=== PATIENT | male | born 1970 | race Two or more races ===

== ENCOUNTER 2025-04-25 14:16 | Inpatient (IN) | payer MEDICAID, OTHER ==
[~2025-04-25] VITALS: Ht 165.1 cm; Wt 83.8 kg
--- NOTE | 2025-04-25 14:45 | ECG ---
[facility] Test Date: 2025-04-25 Test Time: 14:41:12 Pat Name: SCOTT ISABEL Department: Room: 0245 Gender: M [employer] Hel[employer]: GP : 1970 Requested By: ADDY DENNY Order Number: [id number] Reading MD: Elio Doty Measurements Intervals Coleman Rate: 100 P: 44 MS: 176 QRS: 85 QRSD: 86 T: 5 QT: 359 QTc: 463 Interpretive Statements Sinus tachycardia Electronically Signed On 04-27-2025 10:58:11 PST by Elio Doty Please click the below link to view image of tracing.
[2025-04-25 15:10] LABS: Potassium 3.7 mmol/L (3.5-5.1); Sodium 136 mmol/L (136-145)
[2025-04-25 15:11] LABS: Anion Gap 3 (5-15); Calcium 9.2 mg/dL (8.7-10.4); Carbon Dioxide 24 mmol/L (20-31)
[2025-04-25 15:13] LABS: Hematocrit 43.1 % (41.0-53.0); Hemoglobin 14.6 g/dL (13.5-17.5); Mean Corpuscular Hemoglobin 30.0 pg (28.0-32.0); Mean Corpuscular Volume 88.5 fL (80.0-100.0); Nucleated Red Blood Cells % 0.1 %
[2025-04-25 15:16] LABS: BUN/Creatinine Ratio 8.3 (10.0-20.0); Blood Urea Nitrogen 10 mg/dL (9-23)
[2025-04-25 15:18] LABS: Chloride 109 mmol/L (98-107); Glucose 145 mg/dL (74-106)
[2025-04-25] MEDS ORDERED: MORPHINE SULFATE 4 MG/ML SYR/VIAL IV ONE (15:45)
[2025-04-25] MEDS: SODIUM CHLORIDE 0.9% 1,000 ML IV ONE (16:04)
[2025-04-25] MEDS: MORPHINE SULFATE INJ 2 MG/ml SYRG IM ONE (17:00)
[2025-04-25] MEDS: ONDANSETRON HCL 4 MG/2 ML VIAL IV ONE ×2 (17:00→17:52)
[2025-04-25] MEDS: MORPHINE SULFATE 4 MG/ML SYR/VIAL IV ONE (17:53)
[2025-04-25] MEDS: IOHEXOL 300 MG/ML 100ML BOTTLE IJ ONE (19:13)
--- NOTE | 2025-04-25 19:14 | ED.PDOC ---
History of Present Illness HPI Comments 54-year-old male presents with chief complaint of left flank pain. Patient reports on sudden, unprovoked, and atraumatic onset of symptoms, earlier, today. Pain is reported to radiate to his left abdomen. He endorses on having associated nausea and vomiting. Patient does not report any pertinent medical, surgical, or social history. He denies any having any diarrhea, constipation, fever, or further acute symptoms. Chief Complaint: Abdominal Pain Time Seen by MD: 15:30 Reviewed Notes: Nurses Notes, Medications, Allergies Allergies: Coded Allergies: NO KNOWN ALLERGIES (Unverified , 04/25/25) Information Source: Patient Mode of Arrival: Ambulatory Severity: Moderate Timing: Hours Duration: Since onset Prehospital treatment: None Past Medical History PAST MEDICAL HISTORY: Denies Surgical History: Denies all surgeries Family History Family History: Unknown Social History Smoker: Non-Smoker Alcohol: Denies ETOH Use Drugs: Denies Drug Use Lives In: Home All Other Systems: Reviewed and Negative (Comprehensive review of systems are negative unless otherwise stated in HPI) Physical Exam General Appearance: No Apparent Distress, Obese HEENT: Normal ENT Inspection, Pharynx Normal, TMs Normal Neck: Full Range of Motion, Non-Tender, Normal, Normal Inspection Respiratory: Chest Non-Tender, Lungs Clear, No Accessory Muscle Use, No Respiratory Distress, Normal Breath Sounds Cardiovascular: No Edema, No JVD, No Murmur, No Gallop, Normal Peripheral Pulses, Regular Rate/Rhythm Breast Exam: Deferred Gastrointestinal: No Organomegaly, Non Tender, No Pulsatile Mass, Normal Bowel Sounds, Soft Genitalia: Deferred Pelvic: Deferred Rectal: Deferred Extremities: No calf tenderness, Normal capillary refill, Normal inspection, Normal range of motion, Non-tender, No pedal edema Musculoskeletal : Location: Left Extremity Location: Other (Flank) Apperance: Normal, Tenderness (Left flank tenderness) Neurologic: Alert, automatic nailing machine feeder II-XII nml as Tested, No Motor Deficits, Normal Affect, Normal Mood, No Sensory Deficits Cerebellar Function: Normal Reflexes: Normal Skin: Dry, Normal Color, Warm Lymphatic: No Adenopathy Was a procedure done? Was a procedure done?: No Differential Dx Considerations may include: Nephrolithiasis, pyelonephritis, cystitis, musculoskeletal pain, sciatica, degenerative disc disease, diverticulitis, among others X-Ray, Labs, Meds, VS Vital Signs Date Time Temp Pulse Resp B/P (MAP) Pulse Ox O2 Delivery O2 Flow Rate FiO2 04/25/25 17:53 109 18 141/101 04/25/25 17:00 102 18 144/88 04/25/25 15:43 102 18 98 Room Air 04/25/25 15:43 97.9 102 18 144/88 (106) 98 97.9 04/25/25 14:41 100 04/25/25 14:33 98.2 100 18 163/99 98 98.2 Lab Test 04/25/25 14:54 Range/Units White Blood Count 12.7 H 4.4-10.8 10^3/uL Red Blood Count 4.87 4.5-5.90 10^6/uL Hemoglobin 14.6 13.5-17.5 g/dL Hematocrit 43.1 41.0-53.0 % Mean Corpuscular Volume 88.5 80.0-100.0 fL Mean Corpuscular Hemoglobin 30.0 28.0-32.0 pg Mean Corpuscular Hemoglobin Concent 33.9 32.0-36.0 g/dL Red Cell Distribution Width 12.9 11.8-14.3 % Platelet Count 300 140-450 10^3/uL Mean Platelet Volume 8.0 6.9-10.8 fL Neutrophils (%) (Auto) 85.5 H 37.0-80.0 % Lymphocytes (%) (Auto) 8.9 L 10.0-50.0 % Monocytes (%) (Auto) 5.4 0.0-12.0 % Eosinophils (%) (Auto) 0.0 0.0-7.0 % Basophils (%) (Auto) 0.2 0.0-2.0 % Neutrophils # (Auto) 10.9 H 1.6-8.6 10 ^3/uL Lymphocytes # (Auto) 1.1 0.4-5.4 10 ^3/uL Monocytes # (Auto) 0.7 0-1.3 10 ^3/uL Eosinophils # (Auto) 0 0-0.8 10 ^3/uL Basophils # (Auto) 0 0-0.2 10 ^3/uL Nucleated Red Blood Cells 0.1 % Sodium Level 136 136-145 mmol/L Potassium Level 3.7 3.5-5.1 mmol/L Chloride Level 109 H 98-107 mmol/L Carbon Dioxide Level 24 20-31 mmol/L Anion Gap 3 L 5-15 Blood Urea Nitrogen 10 9-23 mg/dL Creatinine 1.21 0.700-1.30 mg/dL Glomerular Filtration Rate Calc 71 >90 mL/min BUN/Creatinine Ratio 8.3 L 10.0-20.0 Serum Glucose 145 H 74-106 mg/dL Calcium Level 9.2 8.7-10.4 mg/dL Current Medications Medications (Trade) Dose Ordered Sig/Davin Route Start Time Stop Time Status Last Admin Ondansetron HCl (Zofran) 4 mg ONCE ONCE IV 04/25/25 15:45 04/25/25 15:46 DC 04/25/25 17:52 Sodium Chloride 1,000 ml @ 1,000 mls/hr Q1H ONCE IV 04/25/25 15:45 04/25/25 16:44 DC 04/25/25 16:04 Morphine Sulfate 4 mg ONCE ONCE IM 04/25/25 16:00 04/25/25 16:01 DC 04/25/25 17:00 Morphine Sulfate 4 mg ONCE ONCE IV 04/25/25 17:00 04/25/25 17:01 DC 04/25/25 17:53 Ondansetron HCl (Zofran) 4 mg ONCE ONCE IV 04/25/25 17:00 04/25/25 17:01 DC 04/25/25 17:00 Time of 1ST Reevaluation: 16:00 Reevaluation 1ST: Unchanged Patient Education/Counseling: Diagnosis, Treatment, Need For Follow Up Family Education/Counseling: No Family Present Additional Information Additional historians: None Previous medical visits reviewed: None Additional imaging and studies ordered and reviewed: EKG, CT of the abdomen and pelvis with IV contrast Labs ordered and reviewed: UA, CBC, BMP SEPSIS Sepsis Screen Date sepsis recognized/suspect: Apr 25, 2025 Time Sepsis recognized/suspect: 1436 Recent Procedure: No On Antibiotic Therapy: No Respiratory Rate >20: No Heart Rate >90: No Temp<36 C (96.8 F) or >38.3 C: No SBP <90 or MAP <65 mmHG: No New Acute Mental Status Change: No Is the patient on CPAP, BIPAP,: No Physician Orders Urinalysis (04/25/25 14:43) Ct Ab Pel With Iv Con Only (04/25/25 16:54) Ketorolac Injection (Toradol Injection) (04/25/25 19:45) Tamsulosin Hydrochloride (Flomax) (04/25/25 19:45) Vital Signs Date Time Temp Pulse Resp B/P (MAP) Pulse Ox O2 Delivery O2 Flow Rate FiO2 04/25/25 17:53 109 18 141/101 04/25/25 17:00 102 18 144/88 04/25/25 15:43 102 18 98 Room Air 04/25/25 15:43 97.9 102 18 144/88 (106) 98 97.9 04/25/25 14:41 100 04/25/25 14:33 98.2 100 18 163/99 98 98.2 Laboratory Tests Test 04/25/25 14:54 White Blood Count 12.7 10^3/uL (4.4-10.8) H Medications Medications Dose Ordered Sig/Davin Route Start Time Stop Time Status Last Admin Dose Admin Morphine Sulfate 4 mg ONCE ONCE IM 04/25/25 16:00 04/25/25 16:01 DC 04/25/25 17:00 Morphine Sulfate 4 mg ONCE ONCE IV 04/25/25 17:00 04/25/25 17:01 DC 04/25/25 17:53 Ondansetron HCl 4 mg ONCE ONCE IV 04/25/25 15:45 04/25/25 15:46 DC 04/25/25 17:52 Ondansetron HCl 4 mg ONCE ONCE IV 04/25/25 17:00 04/25/25 17:01 DC 04/25/25 17:00 Sodium Chloride 1,000 ml @ 1,000 mls/hr Q1H ONCE IV 04/25/25 15:45 04/25/25 16:44 DC 04/25/25 16:04 Departure 1 Departure Time of Disposition: 19:42 (Patient presented with abdominal pain that was concerning for possible appendicits, gastritis, cholecystitis, colitis, gastroenteritis, or orther possible surgical emergency. Data: 1. I ordered and reviewed the result of at least 3 labs including a CBC, BMP, and Urinalysis. 2. I independently interpreted the following tests: CT Abdoment and Pelvis is concerning for ureteral colic .Risk:This patient has a high risk of morbidity due to further diagnostic testing or treatment and may suffer from an acute abdominal process disorder. Fortunately workup reveals ureteral colic intractable abdominal pain and patient can be safely discharged to home with outpatient follow up.) Impression: Primary Impression: Ureteral colic Additional Impression: Intractable abdominal pain Disposition: ADMITTED INPATIENT Admit to: Med Surg Condition: Guarded Critical Care Note Critical Care Time?: Yes Critical care comment: Intractable abdominal pain Authorized and Performed by: Addy Kaminski MD Total critical care time: Approximately 39 minutes Due to a high probability of clinically significant, life threatening deterioration, the patient required my highest level of preparedness to intervene emergently and I personally spent this critical care time directly and personally managing the patient. This critical care time included obtaining a history; examining the patient; pulse oximetry; ordering and review of studies; arranging urgent treatment with development of a management plan; evaluation of patient's response to treatment; frequent reassessment; and, discussions with other providers. This critical care time was performed to assess and manage the high probability of imminent, life-threatening deterioration that could result in multi-organ failure. It was exclusive of separately billable procedures and treating other patients and teaching time. Please see my other sections and the rest of the note for further information on patient assessment and treatment. Stability Stability form required: No Heart Score Heart Score: Heart Score Response (Comments) Value History N/A 0 EKG N/A 0 Age N/A 0 Risk Factors N/A 0 Troponin N/A 0 Total 0 I personally scribed for ADDY KAMINSKI MD ([email or web address]) on 04/25/25 at 19:14. Electronically submitted by Javed Pascual ([email or web address]). ADDY KAMINSKI MD Apr 25, 2025 19:14
--- NOTE | 2025-04-25 19:34 | DVH ---
Exam: CT CT AB PEL WITH IV CON ONLY History: llq abdominal pain COMPARISON: None Technique: Multidetector spiral CT of the abdomen and pelvis was performed from lung bases to pubic symphysis. Intravenous contrast was administered during this examination. Portal venous imaging was obtained. Axial, coronal and sagittal multiplanar reformats were performed by the technologist on a separate workstation. Radiation Dose : 1. Abdomen/Pelvis: CTDIvol 15.63mGy, DLP 1029.88 mGy*cm. CONTRAST: Type of contrast: Omnipaque 300 Contrast injected: 98 ml Findings: Lung Bases: No acute or significant lung base finding. Normal heart size. No pleural or pericardial effusion. Liver: The liver is normal in size. No focal lesions. Normal hepatic vascular enhancement. Gallbladder and Biliary Tree: Unremarkable Spleen: Unremarkable Pancreas: The pancreas is normal in appearance without focal lesions or abnormal enhancement. Adrenal Glands: Unremarkable Kidneys: Obstructing distal left ureteric calculus measuring 3 mm resulting in mild hydronephrosis and hydroureter. Moderate perinephric edema. Bladder: Unremarkable Bowel: The stomach is grossly normal in appearance. Small bowel and colon are normal in caliber and distribution. The appendix is not visualized; however, no secondary findings of acute appendicitis identified. Ascites: Absent Lymphadenopathy: No mesenteric, retroperitoneal or periportal lymphadenopathy. Abdominal Wall and Mesentery: Unremarkable. Vasculature: The visualized abdominal aorta is normal in size and caliber. Abdominal and pelvic vessels demonstrate normal enhancement. Pelvic Organs: Unremarkable Musculoskeletal: No aggressive focal bony lesions, acute fractures or dislocation. IMPRESSION: Obstructing distal left ureteric calculus measuring 3 mm resulting in mild hydronephrosis. Radiation optimization: All CT scans at this facility use at least one of these dose optimization techniques: automated exposure control mA and/or kV adjustment per patient size (includes targeted exams where dose is matched to clinical indication) or iterative reconstruction.
[2025-04-25] MEDS: TAMSULOSIN HYDROCHLORIDE 0.4 MG CAP PO ONE (20:13)
[2025-04-25] MEDS: KETOROLAC TROMETH 30 MG/ML 1ML VIAL IV ONE (20:26)
--- NOTE | 2025-04-25 21:38 | DVHHP2 ---
History of Present Illness Reason for Visit: Intractable abdominal pain History of Present Illness The patient is a 54-year-old male who denies past medical history presented to [facility] with complaint of left flank pain. Patient reports that he has been experiencing left abdominal pain radiating to the left flank, rating 8/10 numeric scale, associated with nausea and vomiting, getting worse that prompted this visit. Patient was seen and evaluated in the ED, laboratory data shows elevated WBC 12.7, platelets 300, sodium 136, potassium 3.7, BUN 10, creatinine 1.21, GFR 71, glucose 145, calcium 9.2, blood pressure 139/92, heart rate 72, temperature 97.9 F, O2 saturation 97% on room air. Abdomen/pelvis CT revealing obstructing distal left ureteric calculus measuring 3 mm resulting in mild hydronephrosis. Please see medication orders section in the computer. On my assessment, patient denied chest pain, no headache, dizziness, diaphoresis, no diarrhea, constipation, nausea or vomiting at this moment, fever, no chills. Patient was admitted for further evaluation and medical management. Past Medical History Denies past medical history Past Surgical History Denies all surgeries Family History Reviewed, noncontributory to the management of this case. Past Social History The patient lives at home, denies smoking, alcohol or illicit drugs abuse. Review of Systems Constitutional: No: Fever, Chills, Sweats, Weakness, Malaise, Other Eyes: No: Pain, Vision change, Conjunctivae inflammation, Eyelid inflammation, Other, Redness ENT: No: Ear pain, Ear discharge, Nose pain, Nose discharge, Nose congestion, Mouth pain, Mouth swelling, Throat pain, Throat swelling, Other Respiratory: No: Cough, Dry, Shortness of breath, SOB with excertion, Wheezing, Hemoptysis, Pleuritic Pain, Sputum, Wheezing, Other Cardiovascular: No: Chest Pain, Palpitations, Orthopnea, Paroxysmal Noc. Dyspnea, Edema, Lt Headedness, Other Gastrointestinal: Nausea, Vomiting, Abdominal Pain; No: Diarrhea, Constipation, Melena, Hematochezia, Other Genitourinary: No Dysuria, No Frequency, No Incontinence, No Hematuria, No Retention; Other (Left flank pain) Musculoskeletal: No: other, neck pain, shoulder pain, arm pain, back pain, hand pain, leg pain, foot pain Skin: No: Rash, Lesions, Jaundice, Bruising, Other Neurological: No: Weakness, Numbness, Incoordination, Change in speech, Confusion, Seizures, Other Allergies: Coded Allergies: NO KNOWN ALLERGIES (Unverified , 04/25/25) Medications Current Medications Medications Dose Ordered Sig/Davin Route Start Time Stop Time Status Last Admin Dose Admin Sodium Chloride 1,000 ml @ 60 mls/hr [id number] IV 04/25/25 21:45 UNV Acetaminophen/ Hydrocodone Bitart 1 tab Q4HP PRN PO 04/25/25 21:45 UNV Ondansetron HCl 4 mg Q4HP PRN IV 04/25/25 21:45 UNV Docusate Sodium 100 mg BIDPRN PRN PO 04/25/25 21:45 UNV Acetaminophen 650 mg Q6HP PRN PO 04/25/25 21:45 UNV Morphine Sulfate 2 mg Q4HPRN PRN IV 04/25/25 21:45 UNV Nitroglycerin 0.4 mg Q5MINP PRN SL 04/25/25 21:45 UNV Morphine Sulfate 2 mg Q30M PRN IV 04/25/25 21:45 UNV Exam Vital Signs Vital Signs Date Time Temp Pulse Resp B/P (MAP) Pulse Ox O2 Delivery O2 Flow Rate FiO2 04/25/25 20:01 97.9 116 20 139/92 (108) 94 97.9 04/25/25 15:43 Room Air General Appearance: Alert, Oriented X3, Cooperative, No acute distress HEENT: Atraumatic, PERRLA, EOMI, Mucous membr. moist/pink Respiratory: Normal air movement Cardiovascular: Regular rate, Normal S1, Normal S2, No murmurs Abdominal: Normal bowel sounds, Soft, No hepatospenomegaly, No masses, Other (Reports tenderness) Extremities: No clubbing, No cyanosis, No edema, Normal pulses, No tenderne ss/swelling Skin: No rashes, No significant lesion Neuro: Normal speech, Normal tone, Sensation intact, Cranial nerves 3-12 NL, Reflexes 2+, Other (Generalized weakness) Psych/Mental Status: Mental status NL, Mood NL Labs/Xrays Labs Test 04/25/25 14:54 Range/Units White Blood Count 12.7 H 4.4-10.8 10^3/uL Red Blood Count 4.87 4.5-5.90 10^6/uL Hemoglobin 14.6 13.5-17.5 g/dL Hematocrit 43.1 41.0-53.0 % Mean Corpuscular Volume 88.5 80.0-100.0 fL Mean Corpuscular Hemoglobin 30.0 28.0-32.0 pg Mean Corpuscular Hemoglobin Concent 33.9 32.0-36.0 g/dL Red Cell Distribution Width 12.9 11.8-14.3 % Platelet Count 300 140-450 10^3/uL Mean Platelet Volume 8.0 6.9-10.8 fL Neutrophils (%) (Auto) 85.5 H 37.0-80.0 % Lymphocytes (%) (Auto) 8.9 L 10.0-50.0 % Monocytes (%) (Auto) 5.4 0.0-12.0 % Eosinophils (%) (Auto) 0.0 0.0-7.0 % Basophils (%) (Auto) 0.2 0.0-2.0 % Neutrophils # (Auto) 10.9 H 1.6-8.6 10 ^3/uL Lymphocytes # (Auto) 1.1 0.4-5.4 10 ^3/uL Monocytes # (Auto) 0.7 0-1.3 10 ^3/uL Eosinophils # (Auto) 0 0-0.8 10 ^3/uL Basophils # (Auto) 0 0-0.2 10 ^3/uL Nucleated Red Blood Cells 0.1 % Sodium Level 136 136-145 mmol/L Potassium Level 3.7 3.5-5.1 mmol/L Chloride Level 109 H 98-107 mmol/L Carbon Dioxide Level 24 20-31 mmol/L Anion Gap 3 L 5-15 Blood Urea Nitrogen 10 9-23 mg/dL Creatinine 1.21 0.700-1.30 mg/dL Glomerular Filtration Rate Calc 71 >90 mL/min BUN/Creatinine Ratio 8.3 L 10.0-20.0 Serum Glucose 145 H 74-106 mg/dL Calcium Level 9.2 8.7-10.4 mg/dL PATIENT: SCOTT ISABEL ACCT: [id number] UNIT: [id number] : 1970 LOC: ER ROOM / BED: / AGE / SEX: 54 / M ADM STATUS: REG ER SERVICE 1654 ORDERING PHYSICIAN: ADDY DENNY MD PROCEDURE(s): ABPLIV - CT AB PEL WITH IV CON ONLY REASON: llq abdominal pain ORDER NUMBER(s): [id number], ACCESSION NUMBER(s): [id number] Exam: CT CT AB PEL WITH IV CON ONLY History: llq abdominal pain COMPARISON: None Technique: Multidetector spiral CT of the abdomen and pelvis was performed from lung bases to pubic symphysis. Intravenous contrast was administered during this examination. Portal venous imaging was obtained. Axial, coronal and sagittal multiplanar reformats were performed by the technologist on a separate workstation. Radiation Dose: 1. Abdomen/Pelvis: CTDIvol 15.63mGy, DLP 1029.88 mGy*cm. CONTRAST: Type of contrast: Omnipaque 300 Contrast injected: 98 ml Findings: Lung Bases: No acute or significant lung base finding. Normal heart size. No pleural or pericardial effusion. Liver: The liver is normal in size. No focal lesions. Normal hepatic vascular enhancement. Gallbladder and Biliary Tree: Unremarkable Spleen: Unremarkable Pancreas: The pancreas is normal in appearance without focal lesions or abnormal enhancement. Adrenal Glands: Unremarkable Kidneys: Obstructing distal left ureteric calculus measuring 3 mm resulting in mild hydronephrosis and hydroureter. Moderate perinephric edema. Bladder: Unremarkable Bowel: The stomach is grossly normal in appearance. Small bowel and colon are normal in caliber and distribution. The appendix is not visualized; however, no secondary findings of acute appendicitis identified. Ascites: Absent Lymphadenopathy: No mesenteric, retroperitoneal or periportal lymphadenopathy. Abdominal Wall and Mesentery: Unremarkable. Vasculature: The visualized abdominal aorta is normal in size and caliber. Abdominal and pelvic vessels demonstrate normal enhancement. Pelvic Organs: Unremarkable Musculoskeletal: No aggressive focal bony lesions, acute fractures or dislocation. IMPRESSION: Obstructing distal left ureteric calculus measuring 3 mm resulting in mild hydronephrosis. SEPSIS Sepsis Screen Date sepsis recognized/suspect: Apr 25, 2025 Time Sepsis recognized/suspect: 2001 Recent Procedure: No On Antibiotic Therapy: No Respiratory Rate >20: No Heart Rate >90: Yes Temp<36 C (96.8 F) or >38.3 C: No SBP <90 or MAP <65 mmHG: No New Acute Mental Status Change: No Is the patient on CPAP, BIPAP,: No Physician Orders Urinalysis (04/25/25 14:43) Ct Ab Pel With Iv Con Only (04/25/25 16:54) * Urology Consult (04/25/25 19:43) Admit (04/25/25 21:34) Allergies (04/25/25 21:34) Code Status (04/25/25 21:34) Sodium Chloride 0.9% (04/25/25 21:45) Oxygen Per Hour (04/25/25 21:34) Hydrocodone-Acet 5/325mg Tab ([place] 5/32 (04/25/25 21:45) Ondansetron Hcl (Zofran) (04/25/25 21:45) Docusate Sodium Capsule (Colace Capsule) (04/25/25 21:45) Complete Blood Count (04/26/25 04:00) Comprehensive Metabolic Panel (04/26/25 04:00) Cardiac Diet-2gna,Lofat,Lochol (04/26/25 Breakfast) Condition: Serious (04/25/25 21:34) Acetaminophen Tablet (Tylenol Tablet) (04/25/25 21:45) Bedrest With Bathroom Privileg (04/25/25 21:34) Morphine Sulfate Injection (04/25/25 21:45) Sequential Compression Device (04/25/25 ) Nitroglycerin Sublingual (Ntrostat Subli (04/25/25 21:45) Morphine Sulfate Injection (04/25/25 21:45) Notify Md Of Changes From Base (04/25/25 21:34) Emergency Dysrhythmia Protocol (04/25/25 21:34) Oxygen By Nasal Cannula (04/25/25 21:34) Vital Signs Date Time Temp Pulse Resp B/P (MAP) Pulse Ox O2 Delivery O2 Flow Rate FiO2 04/25/25 20:01 97.9 116 20 139/92 (108) 94 97.9 04/25/25 18:23 71 15 140/79 04/25/25 17:53 109 18 141/101 04/25/25 17:00 102 18 144/88 04/25/25 15:43 102 18 98 Room Air 04/25/25 15:43 97.9 102 18 144/88 (106) 98 97.9 04/25/25 14:41 100 04/25/25 14:33 98.2 100 18 163/99 98 98.2 Laboratory Tests Test 04/25/25 14:54 White Blood Count 12.7 10^3/uL (4.4-10.8) H Medications Medications Dose Ordered Sig/Davin Route Start Time Stop Time Status Last Admin Dose Admin Ketorolac Tromethamine 15 mg ONCE ONCE IV 04/25/25 19:45 04/25/25 19:46 DC 04/25/25 20:26 15 MG Morphine Sulfate 4 mg ONCE ONCE IM 04/25/25 16:00 04/25/25 16:01 DC 04/25/25 17:00 4 MG Morphine Sulfate 4 mg ONCE ONCE IV 04/25/25 17:00 04/25/25 17:01 DC 04/25/25 17:53 4 MG Ondansetron HCl 4 mg ONCE ONCE IV 04/25/25 15:45 04/25/25 15:46 DC 04/25/25 17:52 4 MG Ondansetron HCl 4 mg ONCE ONCE IV 04/25/25 17:00 04/25/25 17:01 DC 04/25/25 17:00 4 MG Sodium Chloride 1,000 ml @ 1,000 mls/hr Q1H ONCE IV 04/25/25 15:45 04/25/25 16:44 DC 04/25/25 16:04 1,000 MLS/HR Tamsulosin HCl 0.4 mg ONCE ONCE PO 04/25/25 19:45 04/25/25 19:46 DC 04/25/25 20:13 0.4 MG Assessment/Plan Assessment/Plan Intractable abdominal pain Ureteral colic Hyperglycemia Leukocytosis, unspecified Plan 1. Admit to telemetry units 2. Breathing treatment 3. Pain control management 4. Management of fluids and electrolytes 5. Consultation for urology/hospitalist 6. Diagnostic tests abdomen/pelvis CT 7. DVT prophylaxis on SCDs 8. Repeat labs CBC, CMP in a.m. 9. Continue with current medical management 10. Treatment plan discussed with patient and RN. Patient verbalized understanding. Plan discussed with: Patient, Other (RN) My Orders Orders - GILMA MCCLAIN DNP Procedure Category Date Status Time Admit ADMIT 04/25/25 Transmitted 21:34 Allergies KARIN 04/25/25 In Process 21:34 Code Status CODE 04/25/25 Transmitted 21:34 Sodium Chloride 0.9% PHA 04/25/25 Logged 21:45 Oxygen Per Hour RT 04/25/25 Transmitted 21:34 Hydrocodone-Acet PHA 04/25/25 Logged 5/325mg Tab ([place] 21:45 Ondansetron Hcl PHA 04/25/25 Logged (Zofran) 21:45 Docusate Sodium PHA 04/25/25 Logged Capsule (Colace 21:45 Complete Blood Count LAB 04/26/25 Verified 04:00 Comprehensive LAB 04/26/25 Verified Metabolic Panel 04:00 Cardiac DIET 04/26/25 Transmitted Diet-2gna,Lofat,Lochol Breakfast Condition: Serious KARIN 04/25/25 In Process 21:34 Acetaminophen Tablet PHA 04/25/25 Logged (Tylenol Tablet) 21:45 Bedrest With Bathroom KARIN 04/25/25 In Process Privileg 21:34 Morphine Sulfate PHA 04/25/25 Logged Injection 21:45 Sequential KARIN 04/25/25 In Process Compression Device Nitroglycerin PHA 04/25/25 Logged Sublingual (Ntrostat 21:45 Morphine Sulfate PHA 04/25/25 Logged Injection 21:45 Notify Md Of Changes KARIN 04/25/25 In Process From Base 21:34 Emergency Dysrhythmia KARIN 04/25/25 In Process Protocol 21:34 Oxygen By Nasal RT 04/25/25 Transmitted Cannula 21:34 Problem List: (1) Intractable abdominal pain (2) Ureteral colic (3) Hyperglycemia (4) Leukocytosis, unspecified Date of Service: Apr 26, 2025 Billing Provider: GILMA MCCLAIN DNP Common Visit Codes: [id number] INP/OBS CARE (HIGH) GILMA MCCLAIN DNP Apr 25, 2025 21:38
[2025-04-25] MEDS ORDERED: HYDROcodone-ACET 5/325MG TAB PO PRN (21:45)
[2025-04-25] MEDS ORDERED: ONDANSETRON HCL 4 MG/2 ML VIAL IV PRN (21:45)
[2025-04-25] MEDS ORDERED: NITROGLYCERIN 0.4 MG SL TAB SL PRN (21:45)
[2025-04-25] MEDS ORDERED: MORPHINE SULFATE INJ 2 MG/ml SYRG IV PRN ×2 (21:45)
[2025-04-25] MEDS ORDERED: DOCUSATE SOD 100 MG CAP PO PRN (21:45)
[2025-04-25 22:24] LABS: Urine Protein, UAD Negative (Negative)
[2025-04-26] VITALS (7 sets, daily range): BP systolic 103–131; BP diastolic 67–80; PULSE 62–114; RESP 16–19; TEMP 97.9–98.9; O2SAT 94–98
[2025-04-26] MEDS: SODIUM CHLORIDE 0.9% 1,000 ML IV ONE (00:01)
[2025-04-26 02:28] LABS: Hematocrit 40.4 % (41.0-53.0); Hemoglobin 14.0 g/dL (13.5-17.5); Mean Corpuscular Hemoglobin 31.1 pg (28.0-32.0); Mean Corpuscular Volume 89.4 fL (80.0-100.0); Nucleated Red Blood Cells % 0.0 %
[2025-04-26 03:13] LABS: Alanine Aminotransferase 40 U/L (7-40); Albumin 3.9 g/dL (3.2-4.8); Alkaline Phosphatase 77 U/L (46-116); Anion Gap 12 (5-15); BUN/Creatinine Ratio 6.5 (10.0-20.0); Bilirubin, Total 0.8 mg/dL (0.2-1.0); Blood Urea Nitrogen 9 mg/dL (9-23); Carbon Dioxide 22 mmol/L (20-31); Chloride 104 mmol/L (98-107); Potassium 4.0 mmol/L (3.5-5.1); Sodium 138 mmol/L (136-145); Total Protein 6.8 g/dL (5.7-8.2)
[2025-04-26 03:22] LABS: Calcium 8.6 mg/dL (8.7-10.4); Glucose 175 mg/dL (74-106)
[2025-04-26] MEDS: SODIUM CHLORIDE 0.9% 1,000 ML IV SCH (06:13)
--- NOTE | 2025-04-26 10:28 | DVHINCON2 ---
Date of service: Apr 26, 2025 Referring Physician Hospitalist Reason for Consultation 3 mm left distal ureteral stone left flank pain History of Present Illness 54-year-old male presents with chief complaint of left flank pain. Patient reports on sudden, unprovoked, and atraumatic onset of symptoms, earlier, today. Pain is reported to radiate to his left abdomen. He endorses on having associated nausea and vomiting. Patient does not report any pertinent medical, surgical, or social history. He denies any having any diarrhea, constipation, fever, or further acute symptoms. Chief Complaint: Abdominal Pain Reviewed Notes: Nurses Notes, Medications, Allergies Allergies: Coded Allergies: NO KNOWN ALLERGIES (Unverified , 04/25/25) Information Source: Patient Mode of Arrival: Ambulatory Severity: Moderate Timing: Hours Duration: Since onset Prehospital treatment: None Past Medical History Denies Family History: Patient reports no known family medical history. Allergies: Coded Allergies: NO KNOWN ALLERGIES (Unverified , 04/25/25) Current Medications Current Medications Medications (Trade) Dose Ordered Sig/Davin Route PRN Reason Start Time Stop Time Status Last Admin Sodium Chloride 1,000 ml @ 60 mls/hr [id number] IV 04/25/25 21:45 04/26/25 06:13 Acetaminophen/ Hydrocodone Bitart ([place] 5/325MG Tab) 1 tab Q4HP PRN PO MODERATE PAIN (4-6 PAIN SCALE) 04/25/25 21:45 Ondansetron HCl (Zofran) 4 mg Q4HP PRN IV NAUSEA / VOMITING 04/25/25 21:45 Docusate Sodium (Colace Capsule) 100 mg BIDPRN PRN PO FOR CONSTIPATION 04/25/25 21:45 Acetaminophen (Tylenol Tablet) 650 mg Q6HP PRN PO PAIN SCALE 1-3 OR TEMP>100.4 04/25/25 21:45 Morphine Sulfate 2 mg Q4HPRN PRN IV SEVERE PAIN (7-10 PAIN SCALE) 04/25/25 21:45 Nitroglycerin (Ntrostat Sublingual) 0.4 mg Q5MINP PRN SL FOR CHEST PAIN 04/25/25 21:45 Morphine Sulfate 2 mg Q30M PRN IV FOR CHEST PAIN 04/25/25 21:45 Review of Systems All Other Systems: Reviewed and Negative (Comprehensive review of systems are negative unless otherwise stated in HPI) Vital Signs Vital Signs Date Time Temp Pulse Resp B/P (MAP) Pulse Ox O2 Delivery O2 Flow Rate FiO2 04/26/25 09:00 97.9 96 16 116/79 (91) 94 97.9 04/26/25 08:00 Room Air* 0 21 Physical Exam General Appearance: No Apparent Distress, Obese HEENT: Normal ENT Inspection, Pharynx Normal, TMs Normal Neck: Full Range of Motion, Non-Tender, Normal, Normal Inspection Respiratory: Chest Non-Tender, Lungs Clear, No Accessory Muscle Use, No Respiratory Distress, Normal Breath Sounds Cardiovascular: No Edema, No JVD, No Murmur, No Gallop, Normal Peripheral Pulses, Regular Rate/Rhythm Breast Exam: Deferred Gastrointestinal: No Organomegaly, Non Tender, No Pulsatile Mass, Normal Bowel Sounds, Soft Genitalia: Deferred Pelvic: Deferred Rectal: Deferred Extremities: No calf tenderness, Normal capillary refill, Normal inspection, Normal range of motion, Non-tender, No pedal edema Musculoskeletal : Location: Left Extremity Location: Other (Flank) Apperance: Normal, Tenderness (Left flank tenderness) Neurologic: Alert, access database developer II-XII nml as Tested, No Motor Deficits, Normal Affect, Normal Mood, No Sensory Deficits Cerebellar Function: Normal Reflexes: Normal Skin: Dry, Normal Color, Warm Lymphatic: No Adenopathy Labs/Diagnostic Data Labs Test 04/26/25 02:11 04/25/25 21:30 Range/Units White Blood Count 10.6 4.4-10.8 10^3/uL Red Blood Count 4.52 4.5-5.90 10^6/uL Hemoglobin 14.0 13.5-17.5 g/dL Hematocrit 40.4 L 41.0-53.0 % Mean Corpuscular Volume 89.4 80.0-100.0 fL Mean Corpuscular Hemoglobin 31.1 28.0-32.0 pg Mean Corpuscular Hemoglobin Concent 34.8 32.0-36.0 g/dL Red Cell Distribution Width 12.9 11.8-14.3 % Platelet Count 254 140-450 10^3/uL Mean Platelet Volume 8.0 6.9-10.8 fL Neutrophils (%) (Auto) 82.7 H 37.0-80.0 % Lymphocytes (%) (Auto) 10.3 10.0-50.0 % Monocytes (%) (Auto) 6.9 0.0-12.0 % Eosinophils (%) (Auto) 0.0 0.0-7.0 % Basophils (%) (Auto) 0.1 0.0-2.0 % Neutrophils # (Auto) 8.7 H 1.6-8.6 10 ^3/uL Lymphocytes # (Auto) 1.1 0.4-5.4 10 ^3/uL Monocytes # (Auto) 0.7 0-1.3 10 ^3/uL Eosinophils # (Auto) 0 0-0.8 10 ^3/uL Basophils # (Auto) 0 0-0.2 10 ^3/uL Nucleated Red Blood Cells 0.0 % Sodium Level 138 136-145 mmol/L Potassium Level 4.0 3.5-5.1 mmol/L Chloride Level 104 98-107 mmol/L Carbon Dioxide Level 22 20-31 mmol/L Anion Gap 12 5-15 Blood Urea Nitrogen 9 9-23 mg/dL Creatinine 1.39 H 0.700-1.30 mg/dL Glomerular Filtration Rate Calc 60 >90 mL/min BUN/Creatinine Ratio 6.5 L 10.0-20.0 Serum Glucose 175 H 74-106 mg/dL Hemoglobin A1c 6.1 H <5.7 % A1C Calcium Level 8.6 L 8.7-10.4 mg/dL Total Bilirubin 0.8 0.2-1.0 mg/dL Aspartate Amino Transferase (AST) 27 13-40 U/L Alanine Aminotransferase (ALT) 40 7-40 U/L Alkaline Phosphatase 77 46-116 U/L Total Protein 6.8 5.7-8.2 g/dL Albumin 3.9 3.2-4.8 g/dL Urine Color Light-yellow Yellow Urine Clarity Clear Clear Urine pH 5.5 5.0-9.0 Urine Specific [place] 1.040 H 1.001-1.035 Urine Protein Negative Negative Urine Ketones 1+ H Negative Urine Blood Negative Negative /uL Urine Nitrite Negative Negative Urine Bilirubin Negative Negative Urine Urobilinogen Normal Negative mg/dL Urine Leukocyte Esterase Negative Negative /uL Urine RBC 1 0 - 3 /hpf Urine Microscopic WBC 1 0-3 /HPF Urine Squamous Epithelial Cells None seen <5 /hpf Urine Bacteria None seen None Seen /hpf Urine Glucose Normal Normal mg/dL PATIENT: SCOTT ISABEL ACCT: [id number] UNIT: [id number] : 1970 LOC: ER ROOM / BED: / AGE / SEX: 54 / M ADM STATUS: REG ER SERVICE [id number] ORDERING PHYSICIAN: ADDY DENNY MD PROCEDURE(s): ABPLIV - CT AB PEL WITH IV CON ONLY REASON: llq abdominal pain ORDER NUMBER(s): [id number], ACCESSION NUMBER(s): [id number] Exam: CT CT AB PEL WITH IV CON ONLY History: llq abdominal pain COMPARISON: None Technique: Multidetector spiral CT of the abdomen and pelvis was performed from lung bases to pubic symphysis. Intravenous contrast was administered during this examination. Portal venous imaging was obtained. Axial, coronal and sagittal mu ltiplanar reformats were performed by the technologist on a separate workstation. Radiation Dose : 1. Abdomen/Pelvis: CTDIvol 15.63mGy, DLP 1029.88 mGy*cm. CONTRAST: Type of contrast: Omnipaque 300 Contrast injected: 98 ml Findings: Lung Bases: No acute or significant lung base finding. Normal heart size. No pleural or pericardial effusion. Liver: The liver is normal in size. No focal lesions. Normal hepatic vascular enhancement. Gallbladder and Biliary Tree: Unremarkable Spleen: Unremarkable Pancreas: The pancreas is normal in appearance without focal lesions or abnormal enhancement. Adrenal Glands: Unremarkable Kidneys: Obstructing distal left ureteric calculus measuring 3 mm resulting in mild hydronephrosis and hydroureter. Moderate perinephric edema. Bladder: Unremarkable Bowel: The stomach is grossly normal in appearance. Small bowel and colon are normal in caliber and distribution. The appendix is not visualized; however, no secondary findings of acute appendicitis identified. Ascites: Absent Lymphadenopathy: No mesenteric, retroperitoneal or periportal lymphadenopathy. Abdominal Wall and Mesentery: Unremarkable. Vasculature: The visualized abdominal aorta is normal in size and caliber. Abdominal and pelvic vessels demonstrate normal enhancement. Pelvic Organs: Unremarkable Musculoskeletal: No aggressive focal bony lesions, acute fractures or dis location. IMPRESSION: Obstructing distal left ureteric calculus measuring 3 mm resulting in mild hydronephrosis. Radiation optimization: All CT scans at this facility use at least one of these dose optimization techniques: automated exposure control mA and/or kV adjustment per patient size (includes targeted exams where dose is matched to clinical indication) or iterative reconstruction. ATED BY: ANDREA MA MD DICTATED DATE/TIME: 04/25/251931 SIGNED BY: ANDREA MA MD SIGNED DATE/TIME: 04/25/251931 CC: Assessment Left distal ureteral stone, 3 mm Mild left hydronephrosis Left flank pain Plan/Recommendation Expulsive measures If fail conservative management, will plan for left URSLL and stent placement for Sunday04/28/25 Will follow Plan discussed with: Patient, Other JENNY SANCHEZ MD Apr 26, 2025 10:28
--- NOTE | 2025-04-26 11:44 | DVH ---
Bladder ultrasound CLINICAL HISTORY: look for ureteral jetting TECHNIQUE: Multiple grayscale ultrasound images were obtained of the pelvis with attention to the urinary bladder. Limited color Doppler and spectral Doppler acquisitions were also obtained. COMPARISON: CT CT AB PEL WITH IV CON ONLY on DOS: 04/25/25 FINDINGS /impression: Prevoid urinary bladder volume is 112 mL. Wall thickness is 1.4 mm. The right ureteral jet is visualized. The left ureteral jet is not visualized. Prostate is normal in size.
[2025-04-26] MEDS: MANNITOL FTV 25% 12.5 GM/50 ML 50 ML IV ONE (11:52)
--- NOTE | 2025-04-26 13:27 | DVHPN2 ---
Reviewed: Care Plan, H&P, Labs, Medications, Previous Orders, Radiology Changes from previous H/P or p: No Changes Eyes: No Pain, No Vision change, No Conjunctivae inflammation, No Eyelid inflammation, No Other, No Redness ENT: No Ear pain, No Ear discharge, No Nose pain, No Nose discharge, No Nose congestion, No Mouth pain, No Mouth swelling, No Throat pain, No Throat swelling, No Other Cardiovascular: No Chest Pain, No Palpitations, No Orthopnea, No Paroxysmal Noc. Dyspnea, No Edema, No Lt Headedness, No Other Respiratory: No Cough, No Dry, No Shortness of breath, No SOB with excertion, No Wheezing, No Hemoptysis, No Pleuritic Pain, No Sputum, No Other Gastrointestinal: Nausea, Vomiting, Abdominal Pain; No Diarrhea, No Constipation, No Melena, No Hematochezia, No Other Genitourinary: No Dysuria, No Frequency, No Incontinence, No Hematuria, No Retention; Other (Left flank pain) Musculoskeletal: No other, No neck pain, No shoulder pain, No arm pain, No back pain, No hand pain, No leg pain, No foot pain Skin: No Rash, No Lesions, No Jaundice, No Bruising, No Other Objective Vitals Vital Signs Date Time Temp Pulse Resp B/P (MAP) Pulse Ox O2 Delivery O2 Flow Rate FiO2 04/26/25 09:00 97.9 96 16 116/79 (91) 94 97.9 04/26/25 08:00 Room Air* 0 21 Intake/Output Intake and Output 04/26/25 07:00 Intake Total 1200 ml Balance 1200 ml Intake Oral 200 ml IV Total 1000 ml # Voids 1 Medications Current Medications Medications Dose Ordered Sig/Davin Route Start Time Stop Time Status Last Admin Dose Admin Sodium Chloride 1,000 ml @ 60 mls/hr [id number] IV 04/25/25 21:45 04/26/25 06:13 60 MLS/HR Acetaminophen/ Hydrocodone Bitart 1 tab Q4HP PRN PO 04/25/25 21:45 Ondansetron HCl 4 mg Q4HP PRN IV 04/25/25 21:45 Docusate Sodium 100 mg BIDPRN PRN PO 04/25/25 21:45 Acetaminophen 650 mg Q6HP PRN PO 04/25/25 21:45 Morphine Sulfate 2 mg Q4HPRN PRN IV 04/25/25 21:45 Nitroglycerin 0.4 mg Q5MINP PRN SL 04/25/25 21:45 Morphine Sulfate 2 mg Q30M PRN IV 04/25/25 21:45 Laboratory Results Laboratory Tests 04/26/25 02:11 Chemistry Test 04/25/25 14:54 04/26/25 02:11 Calcium Level 9.2 mg/dL (8.7-10.4) 8.6 mg/dL (8.7-10.4) L Albumin 3.9 g/dL (3.2-4.8) Total Protein 6.8 g/dL (5.7-8.2) LFT Test 04/26/25 02:11 Alanine Aminotransferase (ALT) 40 U/L (7-40) Alkaline Phosphatase 77 U/L (46-116) Aspartate Amino Transferase (AST) 27 U/L (13-40) Total Bilirubin 0.8 mg/dL (0.2-1.0) HgA1c, TSH Test 04/26/25 02:11 Hemoglobin A1c 6.1 % A1C (<5.7) H Urinalysis Test 04/25/25 21:30 Urine Color Light-yellow (Yellow) Urine Clarity Clear (Clear) Urine pH 5.5 (5.0-9.0) Urine Specific [place] 1.040 (1.001-1.035) Urine Protein Negative (Negative) Urine Ketones 1+ (Negative) H Urine Blood Negative /uL (Negative) Urine Nitrite Negative (Negative) Urine Bilirubin Negative (Negative) Urine Urobilinogen Normal mg/dL (Negative) Urine Leukocyte Esterase Negative /uL (Negative) Urine RBC 1 /hpf (0 - 3) Urine Microscopic WBC 1 /HPF (0-3) Urine Squamous Epithelial Cells None seen /hpf (<5) Urine Bacteria None seen /hpf (None Seen) Urine Glucose Normal mg/dL (Normal) Labs and/or images reviewed: Labs reviewed by me, Image(s) reviewed by me Assessment/Plan Assessment/Plan Intractable acute left flank pain 3 mm left distal ureteral stone with mild hydronephrosis: Urology consult by Dr. Cooper appreciated, conservative measures pain medication Flomax Acute dehydration: IV fluids Ureteral colic Hyperglycemia Mild leukocytosis Plan discussed with: Patient My Orders Orders - ROCHELLE RANKIN MD Procedure Category Date Status Time Tamsulosin PHA 04/26/25 Verified Hydrochloride (Flomax) 18:00 Tamsulosin PHA 04/26/25 Verified Hydrochloride (Flomax) 13:30 Date of Service: Apr 26, 2025 Billing Provider: ROCHELLE RANKIN MD Common Visit Codes: [id number] INP/OBS CARE(HIGH) ROCHELLE RANKIN MD Apr 26, 2025 13:27
[2025-04-26] MEDS: ACETAMINOPHEN 325 MG TAB PO PRN (13:39)
[2025-04-26] MEDS: TAMSULOSIN HYDROCHLORIDE 0.4 MG CAP PO ONE (13:40)
[2025-04-27 00:52] VITALS: BP 110/68; PULSE 91; RESP 18; TEMP 98.2; O2SAT 96
[2025-04-27] MEDS ORDERED: MORPHINE SULFATE 4 MG/ML SYR/VIAL IV PRN (03:15)
[2025-04-27] MEDS: MORPHINE SULFATE 4 MG/ML SYR/VIAL IV PRN (03:21)
[2025-04-27 04:49] VITALS: BP 137/87; PULSE 96; RESP 18; TEMP 97.8; O2SAT 94
[2025-04-27 08:00] VITALS: PULSE 96; RESP 18; O2SAT 100
[2025-04-27 09:00] VITALS: BP_SYST 107; BP_SYST 150; BP_DIAS 59; BP_DIAS 77; PULSE 63; PULSE 96; RESP 18; RESP 20; TEMP 97.6; O2SAT 100
--- NOTE | 2025-04-27 12:08 | DVHPN2 ---
Reviewed: Care Plan, H&P, Labs, Medications, Previous Orders, Radiology Changes from previous H/P or p: No Changes Eyes: No Pain, No Vision change, No Conjunctivae inflammation, No Eyelid inflammation, No Other, No Redness ENT: No Ear pain, No Ear discharge, No Nose pain, No Nose discharge, No Nose congestion, No Mouth pain, No Mouth swelling, No Throat pain, No Throat swelling, No Other Cardiovascular: No Chest Pain, No Palpitations, No Orthopnea, No Paroxysmal Noc. Dyspnea, No Edema, No Lt Headedness, No Other Respiratory: No Cough, No Dry, No Shortness of breath, No SOB with excertion, No Wheezing, No Hemoptysis, No Pleuritic Pain, No Sputum, No Other Gastrointestinal: Nausea, Vomiting, Abdominal Pain; No Diarrhea, No Constipation, No Melena, No Hematochezia, No Other Genitourinary: No Dysuria, No Frequency, No Incontinence, No Hematuria, No Retention; Other (Left flank pain) Musculoskeletal: No other, No neck pain, No shoulder pain, No arm pain, No back pain, No hand pain, No leg pain, No foot pain Skin: No Rash, No Lesions, No Jaundice, No Bruising, No Other Objective Vitals Vital Signs Date Time Temp Pulse Resp B/P (MAP) Pulse Ox O2 Delivery O2 Flow Rate FiO2 04/27/25 09:00 97.6 96 18 150/77 (101) 100 97.6 04/27/25 08:00 Room Air* 0 21 Intake/Output Intake and Output 04/27/25 07:00 Intake Total 1560 ml Balance 1560 ml Intake Oral 1510 ml IV Total 50 ml # Voids 7 Medications Current Medications Medications Dose Ordered Sig/Davin Route Start Time Stop Time Status Last Admin Dose Admin Sodium Chloride 1,000 ml @ 60 mls/hr [id number] IV 04/25/25 21:45 04/26/25 06:13 60 MLS/HR Acetaminophen/ Hydrocodone Bitart 1 tab Q4HP PRN PO 04/25/25 21:45 Ondansetron HCl 4 mg Q4HP PRN IV 04/25/25 21:45 Docusate Sodium 100 mg BIDPRN PRN PO 04/25/25 21:45 Acetaminophen 650 mg Q6HP PRN PO 04/25/25 21:45 04/26/25 13:39 650 MG Nitroglycerin 0.4 mg Q5MINP PRN SL 04/25/25 21:45 Tamsulosin HCl 0.4 mg QPM PO 04/27/25 18:00 Morphine Sulfate 2 mg Q4HPRN PRN IV 04/27/25 03:15 04/27/25 03:21 2 MG Morphine Sulfate 2 mg Q30M PRN IV 04/27/25 03:15 Laboratory Results Laboratory Tests 04/26/25 02:11 Urinalysis Test 04/25/25 21:30 Urine Color Light-yellow (Yellow) Urine Clarity Clear (Clear) Urine pH 5.5 (5.0-9.0) Urine Specific [place] 1.040 (1.001-1.035) Urine Protein Negative (Negative) Urine Ketones 1+ (Negative) H Urine Blood Negative /uL (Negative) Urine Nitrite Negative (Negative) Urine Bilirubin Negative (Negative) Urine Urobilinogen Normal mg/dL (Negative) Urine Leukocyte Esterase Negative /uL (Negative) Urine RBC 1 /hpf (0 - 3) Urine Microscopic WBC 1 /HPF (0-3) Urine Squamous Epithelial Cells None seen /hpf (<5) Urine Bacteria None seen /hpf (None Seen) Urine Glucose Normal mg/dL (Normal) Labs and/or images reviewed: Labs reviewed by me, Image(s) reviewed by me Assessment/Plan Assessment/Plan Intractable acute left flank pain 3 mm left distal ureteral stone with mild hydronephrosis: Urology consult by Dr. Kenneth jensen, conservative measures pain medication Flomax Acute dehydration: IV fluids Ureteral colic Hyperglycemia Mild leukocytosis Patient has no pain and wants to be discharged home Plan discussed with: Patient My Orders Orders - ROCHELLE RANKIN MD Procedure Category Date Status Time Tamsulosin PHA 04/27/25 In Process Hydrochloride (Flomax) 18:00 Date of Service: Apr 27, 2025 Billing Provider: ROCHELLE RANKIN MD Common Visit Codes: [id number] INP/OBS CARE(HIGH) ROCHELLE RANKIN MD Apr 27, 2025 12:08
[2025-04-27] MEDS ORDERED: TAMS-35 PO (12:09)
[2025-04-27] MEDS ORDERED: TRAM-626 PO (12:10)
--- NOTE | 2025-04-27 12:16 | DVHDS2 ---
Discharge Summary Date of Admission Apr 25, 2025 at 21:34 Date of Discharge: Apr 27, 2025 Admitting Diagnosis Left flank pain Wounds: None Labs/Diagnostic Data: Laboratory Results Test 04/26/25 02:11 04/25/25 21:30 White Blood Count 10.6 10^3/uL (4.4-10.8) Red Blood Count 4.52 10^6/uL (4.5-5.90) Hemoglobin 14.0 g/dL (13.5-17.5) Hematocrit 40.4 % (41.0-53.0) Mean Corpuscular Volume 89.4 fL (80.0-100.0) Mean Corpuscular Hemoglobin 31.1 pg (28.0-32.0) Mean Corpuscular Hemoglobin Concent 34.8 g/dL (32.0-36.0) Red Cell Distribution Width 12.9 % (11.8-14.3) Platelet Count 254 10^3/uL (140-450) Mean Platelet Volume 8.0 fL (6.9-10.8) Neutrophils (%) (Auto) 82.7 % (37.0-80.0) Lymphocytes (%) (Auto) 10.3 % (10.0-50.0) Monocytes (%) (Auto) 6.9 % (0.0-12.0) Eosinophils (%) (Auto) 0.0 % (0.0-7.0) Basophils (%) (Auto) 0.1 % (0.0-2.0) Neutrophils # (Auto) 8.7 10 ^3/uL (1.6-8.6) Lymphocytes # (Auto) 1.1 10 ^3/uL (0.4-5.4) Monocytes # (Auto) 0.7 10 ^3/uL (0-1.3) Eosinophils # (Auto) 0 10 ^3/uL (0-0.8) Basophils # (Auto) 0 10 ^3/uL (0-0.2) Nucleated Red Blood Cells 0.0 % Sodium Level 138 mmol/L (136-145) Potassium Level 4.0 mmol/L (3.5-5.1) Chloride Level 104 mmol/L (98-107) Carbon Dioxide Level 22 mmol/L (20-31) Anion Gap 12 (5-15) Blood Urea Nitrogen 9 mg/dL (9-23) Creatinine 1.39 mg/dL (0.700-1.30) Glomerular Filtration Rate Calc 60 mL/min (>90) BUN/Creatinine Ratio 6.5 (10.0-20.0) Serum Glucose 175 mg/dL (74-106) Hemoglobin A1c 6.1 % A1C (<5.7) Calcium Level 8.6 mg/dL (8.7-10.4) Total Bilirubin 0.8 mg/dL (0.2-1.0) Aspartate Amino Transferase (AST) 27 U/L (13-40) Alanine Aminotransferase (ALT) 40 U/L (7-40) Alkaline Phosphatase 77 U/L (46-116) Total Protein 6.8 g/dL (5.7-8.2) Albumin 3.9 g/dL (3.2-4.8) Urine Color Light-yellow (Yellow) Urine Clarity Clear (Clear) Urine pH 5.5 (5.0-9.0) Urine Specific [place] 1.040 (1.001-1.035) Urine Protein Negative (Negative) Urine Ketones 1+ (Negative) Urine Blood Negative /uL (Negative) Urine Nitrite Negative (Negative) Urine Bilirubin Negative (Negative) Urine Urobilinogen Normal mg/dL (Negative) Urine Leukocyte Esterase Negative /uL (Negative) Urine RBC 1 /hpf (0 - 3) Urine Microscopic WBC 1 /HPF (0-3) Urine Squamous Epithelial Cells None seen /hpf (<5) Urine Bacteria None seen /hpf (None Seen) Urine Glucose Normal mg/dL (Normal) Other Laboratory Tests 04/26/25 02:11 Brief Hx & Hospital Course: 54-year-old male came in with left flank pain found to have 3 mm left distal ureteral stone with mild hydronephrosis seen by Urology Dr. Cooper. Conservatively with the pain medications IV fluids and Flomax and patient has significant relief being discharged home on Flomax and tramadol he will follow up with discharge clinic and Dr. Cooper Consults/Reason for consult Urology Dr. Cooper Operations or Procedures CT abdomen pelvis without contrast Condition at Discharge: Fair Final Diagnosis/Problems List Intractable acute left flank pain 3 mm left distal ureteral stone with mild hydronephrosis: Urology consult by Dr. Cooper appreciated, conservative measures pain medication Flomax Acute dehydration: IV fluids Ureteral colic Hyperglycemia Mild leukocytosis Discharge Disposition: Home Discharge Instruct/Medications Diet: Regular Activity: Light activity Follow Up/Referral: Follow up with the discharge clinic in one week Follow up with the Urology Dr. Cooper in two weeks Medications: Flomax Tramadol Transmitted to pharmacy Scheduled Tamsulosin Hcl (Flomax), 1 CAP PO DAILY Scheduled PRN Tramadol HCl (Tramadol HCl), 50 MG PO QID PRN 39 (Time taken for discharge summary 39 minutes) Discharge Statement: "Patient was advised to return to the ER or call 911 if any headaches, dizziness, shortness of breath, chest pain, abdominal pain, bleeding, fevers, or worsening of medical condition. Patient was counseled about treatment plan, medications, possible side effects, patientverbalized understanding. All questions were answered to the best of my ability. This discharge took greater then 30 minutes in planning, reviewing documentation, counseling the patient, and discussing with other team members." ASSESSMENT ASSESSMENT Hospital Course Improved Assessment Intractable acute left flank pain 3 mm left distal ureteral stone with mild hydronephrosis: Urology consult by Dr. Cooper appreciated, conservative measures pain medication Flomax Acute dehydration: IV fluids Ureteral colic Hyperglycemia Mild leukocytosis Date of Service: Apr 27, 2025 Billing Provider: ROCHELLE RANKIN MD Common Visit Codes: [id number] DISCH DAY >30min ROCHELLE RANKIN MD Apr 27, 2025 12:16
[2025-04-27 12:48] VITALS: BP_SYST 135; BP_SYST 98; BP_DIAS 63; BP_DIAS 85; PULSE 67; PULSE 88; RESP 20; TEMP 97.5; O2SAT 98
[2025-04-27] MEDS ORDERED: TAMSULOSIN HYDROCHLORIDE 0.4 MG CAP PO SCH (18:00)
[2025-04-27] MEDS ORDERED: MELATONIN 5 MG TAB PO ONE (22:00)
== END 2025-04-27 13:40 | disposition home or self-care (01) | DRG 465 ==
LOC: ER 14:16 → OVERFLOW 21:34 → EAST 21:36
PROVIDERS: ADMIT Family Medicine; ATTEND Family Medicine
DX: N13.2 Hydronephrosis with renal and ureteral calculous obstruction (principal); D72.829 Elevated white blood cell count, unspecified; E86.0 Dehydration; R73.9 Hyperglycemia, unspecified
CPT/HCPCS: 36415; 74177; 76857; 80048; 80053; 81001; 83036; 85025; 93005; 96372; 96374; 96375; 99291; G0378; J1885; J2405

== ENCOUNTER 2025-04-29 17:53 | Inpatient (IN) | payer MEDICAID ==
[~2025-04-29] VITALS: Ht 165.1 cm; Wt 77.0 kg
[~2025-04-29 17:53] MED LIST: TAMS-35 PO; TRAM-626 PO
--- NOTE | 2025-04-29 19:30 | ED.PDOC ---
GI ASSESSMENT HPI Comments 54-year-old male presents to ER with complaints of flank pain x4 days. Patient reports that he has been experiencing left-sided flank pain with intermittent nausea x4 days. States that he was recently discharged from this hospital two days ago after being admitted for a left-sided obstructive kidney stone and states that his pain has gotten progressively worse since being discharged prompting him to come back to ER for further evaluation. States he is taking tramadol home without relief and presents to ER ambulatory on arrival, with steady gait, in moderate distress. Denies fever, body aches, chills, vomiting, chest pain, pelvic pain, changes in urination/BM or any further symptoms/complaints Chief Complaint: Back Pain Time Seen by MD: 19:06 Primary Care Provider: UNKNOWN Reviewed Notes: Nurses Notes, Medications, Allergies Allergies: Coded Allergies: NO KNOWN ALLERGIES (Unverified , 04/25/25) Home Meds Active Scripts Tramadol HCl (Tramadol HCl) 50 Mg Tab, 50 MG PO QID PRN, #30 TAB Prov:ROCHELLE RANKIN MD 04/27/25 Tamsulosin Hcl (Flomax) 0.4 Mg Cap, 1 CAP PO DAILY, #15 CAP 11 Refills Prov:ROCHELLE RANKIN MD 04/27/25 Information Source: Patient Mode of Arrival: Ambulatory Past Medical History PAST MEDICAL HISTORY: Denies Surgical History: Denies all surgeries Family History Family History: Unknown Social History Smoker: Non-Smoker Alcohol: Denies ETOH Use Drugs: Denies Drug Use Lives In: Home Constitutional: denies: chills, diaphoresis, fatigue, fever, malaise, sweats, weakness, others EENTM: denies: blurred vision, double vision, ear bleeding, ear discharge, ear drainage, ear pain, ear ringing, eye pain, eye redness, hearing loss, mouth pain, mouth swelling, nasal discharge, nose bleeding, nose congestion, nose pain, photophobia, tearing, throat pain, throat swelling, voice changes, others Respiratory: denies: cough, hemoptysis, orthopnea, SOB at rest, shortness of breath, SOB with excertion, stridor, wheezing, others Cardiovascular: denies: chest pain, dizzy spells, diaphoresis, Dyspnea on exertion, edema, irregular heart beat, left arm pain, lightheadedness, palpitations, PND, syncope, others Gastrointestinal: reports: others (As stated in HPI) Genitourinary: denies: burning, dysuria, flank pain, frequency, hematuria, incontinence, penile discharge, penile sore, pain, testicle pain, testicle swelling, urgency, others Neurological: denies: dizziness, fainting, headache, left sided numbness, left sided weakness, numbness, paresthesia, pre-existing deficit, right sided numbness, right sided weakness, seizure, speech problems, tingling, tremors, weakness, others Musculoskeletal: reports: others (As stated in HPI) Integumetry: denies: bruises, change in color, change in hair/nails, dryness, laceration, lesions, lumps, rash, wounds, others Allergic/Immunocompromised: denies: Difficulty Healing, Frequent Infections, H uche, Itching, others Hematologic/Lymphatic: denies: anemia, blood clots, easy bleeding, easy bruising, swollen glands, others Endocrine: denies: excessive hunger, excessive sweating, excessive thirst, excessive urination, flushing, intolerance to cold, intolerance to heat, unexplained weight gain, unexplained weight loss, others Psychiatric: denies: anxiety, bipolar disorder, depression, hopeless, panic disorder, schizophrenia, sleepless, suicidal, others Physical Exam General Appearance: Moderate Distress HEENT: PERRL/EOMI Neck: Full Range of Motion, Non-Tender, Normal Respiratory: Chest Non-Tender, Lungs Clear, No Accessory Muscle Use, No Respiratory Distress, Normal Breath Sounds Cardiovascular: No Murmur, No Gallop, Regular Rate/Rhythm Breast Exam: Deferred Gastrointestinal: Non Tender, No Pulsatile Mass, Soft Genitalia: Deferred Pelvic: Deferred Rectal: Deferred Extremities: Normal capillary refill, Normal range of motion Musculoskeletal : Extremity Location: Back (TTP to left flank noted) Neurologic: Alert, hand mica plate layer II-XII nml as Tested, No Motor Deficits, No Sensory Deficits Cerebellar Function: Normal Reflexes: Normal Skin: Dry, Normal Color, Warm Lymphatic: No Adenopathy Was a procedure done? Was a procedure done?: No Sedation Sedation?: No GI differential Dx Differential Diagnosis: GI hemorrhage, Urinary Obstruction, UTI, Dehydration X-Ray, Labs, Meds, VS Vital Signs Date Time Temp Pulse Resp B/P (MAP) Pulse Ox O2 Delivery O2 Flow Rate FiO2 04/29/25 19:30 Room Air* 0 21 04/29/25 19:30 98.1 88 16 140/85 (103) 96 98.1 04/29/25 17:55 97.4 105 18 128/90 97 97.4 Lab Test 04/29/25 19:51 04/29/25 19:17 Range/Units Urine Color Light-yellow Yellow Urine Clarity Clear Clear Urine pH 5.0 5.0-9.0 Urine Specific [place] 1.020 1.001-1.035 Urine Protein Negative Negative Urine Ketones 2+ H Negative Urine Blood Trace H Negative /uL Urine Nitrite Negative Negative Urine Bilirubin Negative Negative Urine Urobilinogen Normal Negative mg/dL Urine Leukocyte Esterase Negative Negative /uL Urine RBC 1 0 - 3 /hpf Urine Microscopic WBC < 1 0-3 /HPF Urine Squamous Epithelial Cells None seen <5 /hpf Urine Bacteria None seen None Seen /hpf Urine Glucose Normal Normal mg/dL White Blood Count 11.0 H 4.4-10.8 10^3/uL Red Blood Count 4.92 4.5-5.90 10^6/uL Hemoglobin 15.2 13.5-17.5 g/dL Hematocrit 43.7 41.0-53.0 % Mean Corpuscular Volume 88.8 80.0-100.0 fL Mean Corpuscular Hemoglobin 31.0 28.0-32.0 pg Mean Corpuscular Hemoglobin Concent 34.9 32.0-36.0 g/dL Red Cell Distribution Width 12.4 11.8-14.3 % Platelet Count 290 140-450 10^3/uL Mean Platelet Volume 7.5 6.9-10.8 fL Neutrophils (%) (Auto) 76.3 37.0-80.0 % Lymphocytes (%) (Auto) 13.6 10.0-50.0 % Monocytes (%) (Auto) 9.7 0.0-12.0 % Eosinophils (%) (Auto) 0.1 0.0-7.0 % Basophils (%) (Auto) 0.3 0.0-2.0 % Neutrophils # (Auto) 8.4 1.6-8.6 10 ^3/uL Lymphocytes # (Auto) 1.5 0.4-5.4 10 ^3/uL Monocytes # (Auto) 1.1 0-1.3 10 ^3/uL Eosinophils # (Auto) 0 0-0.8 10 ^3/uL Basophils # (Auto) 0 0-0.2 10 ^3/uL Nucleated Red Blood Cells 0.0 % Sodium Level 136 136-145 mmol/L Potassium Level 4.3 3.5-5.1 mmol/L Chloride Level 100 98-107 mmol/L Carbon Dioxide Level 24 20-31 mmol/L Anion Gap 12 5-15 Blood Urea Nitrogen 15 9-23 mg/dL Creatinine 1.43 H 0.700-1.30 mg/dL Glomerular Filtration Rate Calc 58 >90 mL/min BUN/Creatinine Ratio 10.5 10.0-20.0 Serum Glucose 116 H 74-106 mg/dL Calcium Level 9.5 8.7-10.4 mg/dL Total Bilirubin 0.7 0.2-1.0 mg/dL Aspartate Amino Transferase (AST) 19 13-40 U/L Alanine Aminotransferase (ALT) 41 H 7-40 U/L Alkaline Phosphatase 104 46-116 U/L Total Protein 8.1 5.7-8.2 g/dL Albumin 4.7 3.2-4.8 g/dL Current Medications Medications (Trade) Dose Ordered Sig/Davin Route Start Time Stop Time Status Last Admin Ketorolac Tromethamine (Toradol Injection) 30 mg ONCE ONCE IV 04/29/25 19:30 04/29/25 19:31 DC 04/29/25 19:49 Sodium Chloride 1,000 ml @ 1,000 mls/hr Q1H ONCE IV 04/29/25 19:30 04/29/25 20:29 DC 04/29/25 19:49 Ceftriaxone Sodium 50 ml @ 100 mls/hr ONCE ONCE IV 04/29/25 20:15 04/29/25 20:44 DC 04/29/25 20:35 Tamsulosin HCl (Flomax) 0.4 mg ONCE ONCE PO 04/29/25 20:15 04/29/25 20:16 DC 04/29/25 20:35 PATIENT: SCOTT ISABEL ACCT: [id number] UNIT: [id number] : 1970 LOC: ER ROOM / BED: / AGE / SEX: 54 / M ADM STATUS: REG ER SERVICE 35 ORDERING PHYSICIAN: MIRANDA LINO PROCEDURE(s): ABPL - CT AB PEL WO CON-NO ORAL OR IV REASON: left flank pain ORDER NUMBER(s): [id number], ACCESSION NUMBER(s): [id number] Exam: CT CT AB PEL WO CON-NO ORAL OR IV History: left flank pain Comparison Study: CT CT AB PEL WITH IV CON ONLY on DOS: 04/25/25 TECHNIQUE: Multidetector CT of the abdomen and pelvis was performed from lung bases to pubic symphysis. Imaging was performed without IV contrast. Axial, coronal, and sagittal multiplanar reformats were obtained from the axial data set by the technologist. RADIATION DOSE: CTDI vol 8.63 mGy. DLP 522.79 mGy.cm Findings: Limited evaluation of the solid organs in the absence of IV contrast. Lungs: Basilar atelectasis/scarring. Liver: Diffuse hypoattenuation of the liver suggestive of hepatic steatosis. Spleen: Unremarkable. Pancreas: Unremarkable. Gallbladder: Unremarkable. Adrenals: Unremarkable Kidneys: 3 mm calculus situated in the distal left ureter near the ureterovesicular junction, appearing slightly more distal compared to the prior study. There is mild upstream hydroureteronephrosis. Interval decrease in perinephric edema. Pelvic Viscera: Mild prostatomegaly. Vasculature: Mild atherosclerotic aortoiliac calcification.. Retroperitoneum: Unremarkable. Bowel: No bowel obstruction. No CT evidence of appendicitis. Musculoskeletal: Unremarkable. Soft tissues: Small fat containing umbilical hernia. Impression: 1. 3 mm calculus situated in the distal left ureter near the ureterovesicular junction, appearing slightly more distal compared to the prior study. There is mild upstream hydroureteronephrosis. Interval decrease in perinephric edema. 2. Additional findings as detailed. ATED BY: RAFAT SOLORZANO MD DICTATED DATE/TIME: 04/29/252000 SIGNED BY: RAFAT SOLORZANO MD SIGNED DATE/TIME: 04/29/252000 CC: CBC reviewed- WBC 11.0 CMP reviewed- creatinine 1.43, GFR 58 Urinalysis reviewed without any significant abnormalities CT abdomen/pelvis without contrast reviewed Hep-Lock IV ordered NS 1 L IV ordered Toradol 30 mg IV ordered Flomax ordered Previous chart visit reviewed Patient presents with worsening 10/10 left flank pain with ongoing nausea since being discharged from ER here 2 days ago Patient admitted to hospitalist for left-sided hydroureteronephrosis/left renal calculus and need for pain control/urology consult Time of 1ST Reevaluation: 19:06 Reevaluation 1ST: N/A Patient Education/Counseling: Diagnosis, Treatment, Prognosis, Need For Follow Up Family Education/Counseling: No Family Present SEPSIS Sepsis Screen Date sepsis recognized/suspect: Apr 29, 2025 Time Sepsis recognized/suspect: 1755 Recent Procedure: No On Antibiotic Therapy: No Respiratory Rate >20: No Heart Rate >90: No Temp<36 C (96.8 F) or >38.3 C: No SBP <90 or MAP <65 mmHG: No New Acute Mental Status Change: No Is the patient on CPAP, BIPAP,: No Physician Orders Heplock Iv (04/29/25 ) Ct Ab Pel Wo Con-No Oral Or Iv (04/29/25 19:36) Vital Signs Date Time Temp Pulse Resp B/P (MAP) Pulse Ox O2 Delivery O2 Flow Rate FiO2 04/29/25 19:30 Room Air* 0 21 04/29/25 19:30 98.1 88 16 140/85 (103) 96 98.1 04/29/25 17:55 97.4 105 18 128/90 97 97.4 Laboratory Tests Test 04/29/25 19:17 White Blood Count 11.0 10^3/uL (4.4-10.8) H Medications Medications Dose Ordered Sig/Davin Route Start Time Stop Time Status Last Admin Dose Admin Ceftriaxone Sodium 50 ml @ 100 mls/hr ONCE ONCE IV 04/29/25 20:15 04/29/25 20:44 DC 04/29/25 20:35 Ketorolac Tromethamine 30 mg ONCE ONCE IV 04/29/25 19:30 04/29/25 19:31 DC 04/29/25 19:49 Sodium Chloride 1,000 ml @ 1,000 mls/hr Q1H ONCE IV 04/29/25 19:30 04/29/25 20:29 DC 04/29/25 19:49 Tamsulosin HCl 0.4 mg ONCE ONCE PO 04/29/25 20:15 04/29/25 20:16 DC 04/29/25 20:35 Departure 1 Departure Time of Disposition: 19:29 Impression: Primary Impression: Hydronephrosis, left Additional Impression: Renal calculus, left Disposition: 09 ADMITTED INPATIENT Condition: Stable Critical Care Note Critical Care Time?: No Stability Stability form required: No Heart Score Heart Score: Heart Score Response (Comments) Value History N/A 0 EKG N/A 0 Age N/A 0 Risk Factors N/A 0 Troponin N/A 0 Total 0 MIRANDA LINO Apr 29, 2025 19:30
[2025-04-29 19:36] LABS: Hematocrit 43.7 % (41.0-53.0); Hemoglobin 15.2 g/dL (13.5-17.5); Mean Corpuscular Hemoglobin 31.0 pg (28.0-32.0); Mean Corpuscular Volume 88.8 fL (80.0-100.0); Nucleated Red Blood Cells % 0.0 %
[2025-04-29] MEDS: KETOROLAC TROMETH 30 MG/ML 1ML VIAL IV ONE (19:49)
[2025-04-29] MEDS: SODIUM CHLORIDE 0.9% 1,000 ML IV ONE (19:49)
[2025-04-29 19:59] LABS: Albumin 4.7 g/dL (3.2-4.8); Alkaline Phosphatase 104 U/L (46-116); Anion Gap 12 (5-15); BUN/Creatinine Ratio 10.5 (10.0-20.0); Blood Urea Nitrogen 15 mg/dL (9-23); Calcium 9.5 mg/dL (8.7-10.4); Carbon Dioxide 24 mmol/L (20-31); Chloride 100 mmol/L (98-107); Potassium 4.3 mmol/L (3.5-5.1); Sodium 136 mmol/L (136-145); Total Protein 8.1 g/dL (5.7-8.2)
[2025-04-29 20:00] LABS: Bilirubin, Total 0.7 mg/dL (0.2-1.0)
[2025-04-29 20:01] LABS: Alanine Aminotransferase 41 U/L (7-40); Glucose 116 mg/dL (74-106)
--- NOTE | 2025-04-29 20:04 | DVH ---
Exam: CT CT AB PEL WO CON-NO ORAL OR IV History: left flank pain Comparison Study: CT CT AB PEL WITH IV CON ONLY on DOS: 04/25/25 TECHNIQUE: Multidetector CT of the abdomen and pelvis was performed from lung bases to pubic symphysis. Imaging was performed without IV contrast. Axial, coronal, and sagittal multiplanar reformats were obtained from the axial data set by the technologist. RADIATION DOSE: CTDI vol 8.63 mGy. DLP 522.79 mGy.cm Findings: Limited evaluation of the solid organs in the absence of IV contrast. Lungs: Basilar atelectasis/scarring. Liver: Diffuse hypoattenuation of the liver suggestive of hepatic steatosis. Spleen: Unremarkable. Pancreas: Unremarkable. Gallbladder: Unremarkable. Adrenals: Unremarkable Kidneys: 3 mm calculus situated in the distal left ureter near the ureterovesicular junction, appearing slightly more distal compared to the prior study. There is mild upstream hydroureteronephrosis. Interval decrease in perinephric edema. Pelvic Viscera: Mild prostatomegaly. Vasculature: Mild atherosclerotic aortoiliac calcification.. Retroperitoneum: Unremarkable. Bowel: No bowel obstruction. No CT evidence of appendicitis. Musculoskeletal: Unremarkable. Soft tissues: Small fat containing umbilical hernia. Impression: 1. 3 mm calculus situated in the distal left ureter near the ureterovesicular junction, appearing slightly more distal compared to the prior study. There is mild upstream hydroureteronephrosis. Interval decrease in perinephric edema. 2. Additional findings as detailed.
[2025-04-29] MEDS: TAMSULOSIN HYDROCHLORIDE 0.4 MG CAP PO ONE (20:35)
[2025-04-29 21:04] LABS: Urine Protein, UAD Negative (Negative)
[2025-04-29] MEDS ORDERED: KETOROLAC TROMETH 30 MG/ML 1ML VIAL IV PRN (22:00)
[2025-04-29] MEDS ORDERED: ACETAMINOPHEN 325 MG TAB PO PRN (22:00)
[2025-04-29] MEDS ORDERED: ONDANSETRON HCL 4 MG/2 ML VIAL IV PRN (22:00)
[2025-04-29] MEDS ORDERED: TEMAZEPAM 15 MG CAP PO PRN (22:00)
--- NOTE | 2025-04-29 22:02 | DVHHP2 ---
History of Present Illness Reason for Visit: Flank pain History of Present Illness 54-year-old male presents for evaluation of flank pain. Patient reports a four day history of left-sided flank pain. He was seen two days ago at the emergency department and diagnosed with a kidney stone, he felt better therefore he left home. Today he returns with worsening pain. No nausea or vomiting no fever or chills. Past Medical History Kidney stones Past Surgical History Denies Family History Noncontributory Smoke: No ALCOHOL: none Drugs: None Review of Systems Review of Systems Review of systems are currently negative otherwise addressed in HPI. Allergies: Coded Allergies: NO KNOWN ALLERGIES (Unverified , 04/25/25) Medications Current Medications Medications Dose Ordered Sig/Davin Route Start Time Stop Time Status Last Admin Dose Admin Ketorolac Tromethamine 15 mg Q6HPRN PRN IV 04/29/25 22:00 05/04/25 21:59 UNV Ceftriaxone Sodium 50 ml @ 100 mls/hr DAILY@09 IV 04/30/25 09:00 UNV Acetaminophen/ Hydrocodone Bitart 1 tab Q4HP PRN PO 04/29/25 22:00 UNV Temazepam 15 mg QHSP PRN PO 04/29/25 22:00 UNV Ondansetron HCl 4 mg Q4HP PRN IV 04/29/25 22:00 UNV Acetaminophen 650 mg Q6HP PRN PO 04/29/25 22:00 UNV Exam Vital Signs Vital Signs Date Time Temp Pulse Resp B/P (MAP) Pulse Ox O2 Delivery O2 Flow Rate FiO2 04/29/25 19:30 Room Air* 0 21 04/29/25 19:30 98.1 88 16 140/85 (103) 96 98.1 Exam Gen: 54-year-old male in mild distress. Skin: Warm, dry, normal color and texture, no rash. HEENT: Normocephalic atraumatic, mucous membranes moist and pink. Neck: Cervical and supraclavicular nodes normal without enlargement, trachea is midline, thyroid gland is normal without masses. Pulmonary: Clear to auscultation and percussion bilaterally. Cardiac: Regular rate and rhythm. No murmur Abdomen: Soft, left CVA tongue in his, nondistended, bowel sounds present all 4 quadrants, no guarding, no rigidity, no organomegaly. Extremities: No cyanosis, clubbing, no edema Neuro: Cranial nerves II through XII grossly intact, normal affect and speech, no focal motor deficits. Labs/Xrays ORDERING PHYSICIAN: MIRANDA LINO PROCEDURE(s): ABPL - CT AB PEL WO CON-NO ORAL OR IV REASON: left flank pain ORDER NUMBER(s): [id number], ACCESSION NUMBER(s): [id number] Exam: CT CT AB PEL WO CON-NO ORAL OR IV History: left flank pain Comparison Study: CT CT AB PEL WITH IV CON ONLY on DOS: 04/25/25 TECHNIQUE: Multidetector CT of the abdomen and pelvis was performed from lung bases to pubic symphysis. Imaging was performed without IV contrast. Axial, coronal, and sagittal multiplanar reformats were obtained from the axial data set by the technologist. RADIATION DOSE: CTDI vol 8.63 mGy. DLP 522.79 mGy.cm Findings: Limited evaluation of the solid organs in the absence of IV contrast. Lungs: Basilar atelectasis/scarring. Liver: Diffuse hypoattenuation of the liver suggestive of hepatic steatosis. Spleen: Unremarkable. Pancreas: Unremarkable. Gallbladder: Unremarkable. Adrenals: Unremarkable Kidneys: 3 mm calculus situated in the distal left ureter near the ureterovesicular junction, appearing slightly more distal compared to the prior study. There is mild upstream hydroureteronephrosis. Interval decrease in perinephric edema. Pelvic Viscera: Mild prostatomegaly. Vasculature: Mild atherosclerotic aortoiliac calcification.. Retroperitoneum: Unremarkable. Bowel: No bowel obstruction. No CT evidence of appendicitis. Musculoskeletal: Unremarkable. Soft tissues: Small fat containing umbilical hernia. Impression: 1. 3 mm calculus situated in the distal left ureter near the ureterovesicular junction, appearing slightly more distal compared to the prior study. There is mild upstream hydroureteronephrosis. Interval decrease in perinephric edema. 2. Additional findings as detailed. Labs Test 04/29/25 19:51 04/29/25 19:17 Range/Units Urine Color Light-yellow Yellow Urine Clarity Clear Clear Urine pH 5.0 5.0-9.0 Urine Specific [place] 1.020 1.001-1.035 Urine Protein Negative Negative Urine Ketones 2+ H Negative Urine Blood Trace H Negative /uL Urine Nitrite Negative Negative Urine Bilirubin Negative Negative Urine Urobilinogen Normal Negative mg/dL Urine Leukocyte Esterase Negative Negative /uL Urine RBC 1 0 - 3 /hpf Urine Microscopic WBC < 1 0-3 /HPF Urine Squamous Epithelial Cells None seen <5 /hpf Urine Bacteria None seen None Seen /hpf Urine Glucose Normal Normal mg/dL White Blood Count 11.0 H 4.4-10.8 10^3/uL Red Blood Count 4.92 4.5-5.90 10^6/uL Hemoglobin 15.2 13.5-17.5 g/dL Hematocrit 43.7 41.0-53.0 % Mean Corpuscular Volume 88.8 80.0-100.0 fL Mean Corpuscular Hemoglobin 31.0 28.0-32.0 pg Mean Corpuscular Hemoglobin Concent 34.9 32.0-36.0 g/dL Red Cell Distribution Width 12.4 11.8-14.3 % Platelet Count 290 140-450 10^3/uL Mean Platelet Volume 7.5 6.9-10.8 fL Neutrophils (%) (Auto) 76.3 37.0-80.0 % Lymphocytes (%) (Auto) 13.6 10.0-50.0 % Monocytes (%) (Auto) 9.7 0.0-12.0 % Eosinophils (%) (Auto) 0.1 0.0-7.0 % Basophils (%) (Auto) 0.3 0.0-2.0 % Neutrophils # (Auto) 8.4 1.6-8.6 10 ^3/uL Lymphocytes # (Auto) 1.5 0.4-5.4 10 ^3/uL Monocytes # (Auto) 1.1 0-1.3 10 ^3/uL Eosinophils # (Auto) 0 0-0.8 10 ^3/uL Basophils # (Auto) 0 0-0.2 10 ^3/uL Nucleated Red Blood Cells 0.0 % Sodium Level 136 136-145 mmol/L Potassium Level 4.3 3.5-5.1 mmol/L Chloride Level 100 98-107 mmol/L Carbon Dioxide Level 24 20-31 mmol/L Anion Gap 12 5-15 Blood Urea Nitrogen 15 9-23 mg/dL Creatinine 1.43 H 0.700-1.30 mg/dL Glomerular Filtration Rate Calc 58 >90 mL/min BUN/Creatinine Ratio 10.5 10.0-20.0 Serum Glucose 116 H 74-106 mg/dL Calcium Level 9.5 8.7-10.4 mg/dL Total Bilirubin 0.7 0.2-1.0 mg/dL Aspartate Amino Transferase (AST) 19 13-40 U/L Alanine Aminotransferase (ALT) 41 H 7-40 U/L Alkaline Phosphatase 104 46-116 U/L Total Protein 8.1 5.7-8.2 g/dL Albumin 4.7 3.2-4.8 g/dL SEPSIS Sepsis Screen Date sepsis recognized/suspect: Apr 29, 2025 Time Sepsis recognized/suspect: 1755 Recent Procedure: No On Antibiotic Therapy: No Respiratory Rate >20: No Heart Rate >90: No Temp<36 C (96.8 F) or >38.3 C: No SBP <90 or MAP <65 mmHG: No New Acute Mental Status Change: No Is the patient on CPAP, BIPAP,: No Physician Orders Heplock Iv (04/29/25 ) Ct Ab Pel Wo Con-No Oral Or Iv (04/29/25 19:36) Ketorolac Injection (Toradol Injection) (04/29/25 22:00) Basic Metabolic Panel (04/30/25 04:00) Ceftriaxone 1gm/50ml (Rocephin) (04/30/25 09:00) * Urology Consult (04/29/25 21:49) Admit (04/29/25 21:49) Hydrocodone-Acet 5/325mg Tab ([place] 5/32 (04/29/25 22:00) Temazepam (Restoril) (04/29/25 22:00) Ondansetron Hcl (Zofran) (04/29/25 22:00) Condition: Stable (04/29/25 21:49) Acetaminophen Tablet (Tylenol Tablet) (04/29/25 22:00) Bedrest With Bathroom Privileg (04/29/25 21:49) Regular Diet (04/30/25 Breakfast) Vital Signs Date Time Temp Pulse Resp B/P (MAP) Pulse Ox O2 Delivery O2 Flow Rate FiO2 04/29/25 19:30 Room Air* 0 21 04/29/25 19:30 98.1 88 16 140/85 (103) 96 98.1 04/29/25 17:55 97.4 105 18 128/90 97 97.4 Laboratory Tests Test 04/29/25 19:17 White Blood Count 11.0 10^3/uL (4.4-10.8) H Medications Medications Dose Ordered Sig/Davin Route Start Time Stop Time Status Last Admin Dose Admin Ceftriaxone Sodium 50 ml @ 100 mls/hr ONCE ONCE IV 04/29/25 20:15 04/29/25 20:44 DC 04/29/25 20:35 100 MLS/HR Ketorolac Tromethamine 30 mg ONCE ONCE IV 04/29/25 19:30 04/29/25 19:31 DC 04/29/25 19:49 30 MG Sodium Chloride 1,000 ml @ 1,000 mls/hr Q1H ONCE IV 04/29/25 19:30 04/29/25 20:29 DC 04/29/25 19:49 1,000 MLS/HR Tamsulosin HCl 0.4 mg ONCE ONCE PO 04/29/25 20:15 04/29/25 20:16 DC 04/29/25 20:35 0.4 MG Assessment/Plan Assessment/Plan Assessment Ureterolithiasis Left hydronephrosis Plan Admit the patient to [facility] to the hospitalist Urology consultation Pain management Rocephin Continue treatment per orders. Plan discussed with: Patient My Orders Orders - MATTHEW MELENDEZ Procedure Category Date Status Time Ketorolac Injection PHA 04/29/25 Logged (Toradol Injection) 22:00 Basic Metabolic Panel LAB 04/30/25 Verified 04:00 Ceftriaxone 1gm/50ml PHA 04/30/25 Logged (Rocephin) 09:00 * Urology Consult CONS 04/29/25 Transmitted 21:49 Admit ADMIT 04/29/25 Transmitted 21:49 Hydrocodone-Acet PHA 04/29/25 Logged 5/325mg Tab ([place] 22:00 Temazepam (Restoril) PHA 04/29/25 Logged 22:00 Ondansetron Hcl PHA 04/29/25 Logged (Zofran) 22:00 Condition: Stable KARIN 04/29/25 In Process 21:49 Acetaminophen Tablet PHA 04/29/25 Logged (Tylenol Tablet) 22:00 Bedrest With Bathroom KARIN 04/29/25 In Process Privileg 21:49 Regular Diet DIET 04/30/25 Transmitted Breakfast Date of Service: Apr 29, 2025 Billing Provider: MATTHEW MELENDEZ Common Visit Codes: [id number] INP/OBS CARE (MOD) MATTHEW MELENDEZ Apr 29, 2025 22:02
[2025-04-30] VITALS (7 sets, daily range): BP systolic 126–141; BP diastolic 84–88; PULSE 59–83; RESP 16–19; TEMP 98–98.6; O2SAT 96–99
[2025-04-30 06:45] LABS: Chloride 102 mmol/L (98-107); Potassium 4.2 mmol/L (3.5-5.1); Sodium 138 mmol/L (136-145)
[2025-04-30 06:46] LABS: Anion Gap 10 (5-15); Calcium 9.3 mg/dL (8.7-10.4); Carbon Dioxide 26 mmol/L (20-31)
[2025-04-30 06:51] LABS: BUN/Creatinine Ratio 10.7 (10.0-20.0); Blood Urea Nitrogen 14 mg/dL (9-23); Glucose 93 mg/dL (74-106)
--- NOTE | 2025-04-30 11:10 | DVHINCON2 ---
Date of service: Apr 30, 2025 Referring Physician Hospitalist Reason for Consultation 3 mm distal left ureteral stone. History of Present Illness Patient seen on 04/26/25 for same issue. He was discharged pain free and now returns for same issue. Family History: Patient reports no known family medical history. Allergies: Coded Allergies: NO KNOWN ALLERGIES (Unverified , 04/25/25) Home Meds Active Scripts Tramadol HCl (Tramadol HCl) 50 Mg Tab, 50 MG PO QID PRN, #30 TAB Prov:ROCHELLE RANKIN MD 04/27/25 Tamsulosin Hcl (Flomax) 0.4 Mg Cap, 1 CAP PO DAILY, #15 CAP 11 Refills Prov:ROCHELLE RANKIN MD 04/27/25 Current Medications Current Medications Medications (Trade) Dose Ordered Sig/Davin Route PRN Reason Start Time Stop Time Status Last Admin Ketorolac Tromethamine (Toradol Injection) 15 mg Q6HPRN PRN IV SEVERE PAIN (7-10 PAIN SCALE) 04/29/25 22:00 05/04/25 21:59 Ceftriaxone Sodium 50 ml @ 100 mls/hr Q24H IV 04/30/25 21:00 Acetaminophen/ Hydrocodone Bitart ([place] 5/325MG Tab) 1 tab Q4HP PRN PO MODERATE PAIN (4-6 PAIN SCALE) 04/29/25 22:00 Temazepam (Restoril) 15 mg QHSP PRN PO FOR INSOMNIA 04/29/25 22:00 Ondansetron HCl (Zofran) 4 mg Q4HP PRN IV NAUSEA / VOMITING 04/29/25 22:00 Acetaminophen (Tylenol Tablet) 650 mg Q6HP PRN PO PAIN SCALE 1-3 OR TEMP>100.4 04/29/25 22:00 Vital Signs Vital Signs Date Time Temp Pulse Resp B/P (MAP) Pulse Ox O2 Delivery O2 Flow Rate FiO2 04/30/25 08:48 98.1 79 16 126/85 (99) 98 98.1 04/30/25 08:00 Room Air* 0 21 Labs/Diagnostic Data Labs Test 04/30/25 05:47 04/29/25 19:51 04/29/25 19:17 Range/Units Sodium Level 138 136-145 mmol/L Potassium Level 4.2 3.5-5.1 mmol/L Chloride Level 102 98-107 mmol/L Carbon Dioxide Level 26 20-31 mmol/L Anion Gap 10 5-15 Blood Urea Nitrogen 14 9-23 mg/dL Creatinine 1.31 H 0.700-1.30 mg/dL Glomerular Filtration Rate Calc 65 >90 mL/min BUN/Creatinine Ratio 10.7 10.0-20.0 Serum Glucose 93 74-106 mg/dL Calcium Level 9.3 8.7-10.4 mg/dL Urine Color Light-yellow Yellow Urine Clarity Clear Clear Urine pH 5.0 5.0-9.0 Urine Specific [place] 1.020 1.001-1.035 Urine Protein Negative Negative Urine Ketones 2+ H Negative Urine Blood Trace H Negative /uL Urine Nitrite Negative Negative Urine Bilirubin Negative Negative Urine Urobilinogen Normal Negative mg/dL Urine Leukocyte Esterase Negative Negative /uL Urine RBC 1 0 - 3 /hpf Urine Microscopic WBC < 1 0-3 /HPF Urine Squamous Epithelial Cells None seen <5 /hpf Urine Bacteria None seen None Seen /hpf Urine Glucose Normal Normal mg/dL White Blood Count 11.0 H 4.4-10.8 10^3/uL Red Blood Count 4.92 4.5-5.90 10^6/uL Hemoglobin 15.2 13.5-17.5 g/dL Hematocrit 43.7 41.0-53.0 % Mean Corpuscular Volume 88.8 80.0-100.0 fL Mean Corpuscular Hemoglobin 31.0 28.0-32.0 pg Mean Corpuscular Hemoglobin Concent 34.9 32.0-36.0 g/dL Red Cell Distribution Width 12.4 11.8-14.3 % Platelet Count 290 140-450 10^3/uL Mean Platelet Volume 7.5 6.9-10.8 fL Neutrophils (%) (Auto) 76.3 37.0-80.0 % Lymphocytes (%) (Auto) 13.6 10.0-50.0 % Monocytes (%) (Auto) 9.7 0.0-12.0 % Eosinophils (%) (Auto) 0.1 0.0-7.0 % Basophils (%) (Auto) 0.3 0.0-2.0 % Neutrophils # (Auto) 8.4 1.6-8.6 10 ^3/uL Lymphocytes # (Auto) 1.5 0.4-5.4 10 ^3/uL Monocytes # (Auto) 1.1 0-1.3 10 ^3/uL Eosinophils # (Auto) 0 0-0.8 10 ^3/uL Basophils # (Auto) 0 0-0.2 10 ^3/uL Nucleated Red Blood Cells 0.0 % Total Bilirubin 0.7 0.2-1.0 mg/dL Aspartate Amino Transferase (AST) 19 13-40 U/L Alanine Aminotransferase (ALT) 41 H 7-40 U/L Alkaline Phosphatase 104 46-116 U/L Total Protein 8.1 5.7-8.2 g/dL PATIENT: ARTIS ISABELT: [id number]: [id number] : 1970LOC: ERROOM / BED: / AGE / SEX: 54 / MADM STATUS: [facility] ORDERING PHYSICIAN: MIRANDA LINO PROCEDURE(s): ABPL - CT AB PEL WO CON-NO ORAL OR IV REASON: left flank pain ORDER NUMBER(s): [id number], ACCESSION NUMBER(s): [id number] Exam: CT CT AB PEL WO CON-NO ORAL OR IV History: left flank pain Comparison Study: CT CT AB PEL WITH IV CON ONLY on DOS: 04/25/25 TECHNIQUE: Multidetector CT of the abdomen and pelvis was performed from lung bases to pubic symphysis. Imaging was performed without IV contrast. Axial, coronal, and sagittal multiplanar reformats were obtained from the axial data set by the technologist. RADIATION DOSE: CTDI vol 8.63 mGy. DLP 522.79 mGy.cm Findings: Limited evaluation of the solid organs in the absence of IV contrast. Lungs: Basilar atelectasis/scarring. Liver: Diffuse hypoattenuation of the liver suggestive of hepatic steatosis. Spleen: Unremarkable. Pancreas: Unremarkable. Gallbladder: Unremarkable. Adrenals: Unremarkable Kidneys: 3 mm calculus situated in the distal left ureter near the ureterovesicular junction, appearing slightly more distal compared to the prior study. There is mild upstream hydroureteronephrosis. Interval decrease in perinephric edema. Pelvic Viscera: Mild prostatomegaly. Vasculature: Mild atherosclerotic aortoiliac calcification.. Retroperitoneum: Unremarkable. Bowel: No bowel obstruction. No CT evidence of appendicitis. Musculoskeletal: Unremarkable. Soft tissues: Small fat containing umbilical hernia. Impression: 1. 3 mm calculus situated in the distal left ureter near the ureterovesicular j unction, appearing slightly more distal compared to the prior study. There is mild upstream hydroureteronephrosis. Interval decrease in perinephric edema. 2. Additional findings as detailed. ATED BY: RAFAT SOLORZANO MD DICTATED DATE/TIME: 04/29/252000 Albumin 4.7 3.2-4.8 g/dL Assessment Left distal ureteral stone, 3 mm Plan/Recommendation Expulsive measures Plan for ESWL Plan discussed with: Patient, Other JENNY SANCHEZ MD Apr 30, 2025 11:10
--- NOTE | 2025-04-30 13:02 | DVH ---
Technique: Real-time ultrasound images through the bladder. Indication: Ureteral jetting Comparison: CT abdomen from 04/29/2025 Findings: The bladder measures 108 cc in volume. The bilateral ureteral jets are visualized. Small cystic focus along the anterior right bladder likely representing bladder diverticulum measuring 7 mm. Mild diffuse bladder wall thickening to 4 mm. Prostate is enlarged measuring 45 cc in volume. This extends into the posterior bladderm Impression: Bilateral ureteral jets visualized. Anterior right bladder diverticulum measuring 7 mm. Enlarged prostate measuring 45 cc in volume. Mild diffuse bladder wall thickening to 4 mm which could be secondary to under distention, cystitis, neurogenic bladder, outlet obstruction, less likely but not ruled out would include neoplastic/ infiltrative etiologies
--- NOTE | 2025-04-30 13:40 | MEDREC ---
[facility] ASP Intervention Section I [facility] ASP Intervention: Review courses of therapy (May consider discontinuing antibiotic therapy in the absence of UTI if/when clinically appropriate.) [facility] RESIDENT Apr 30, 2025 13:40
[2025-04-30] MEDS: HYDROcodone-ACET 5/325MG TAB PO PRN (13:41)
[2025-04-30] MEDS: MANNITOL FTV 25% 12.5 GM/50 ML 50 ML IV ONE (15:24)
--- NOTE | 2025-04-30 16:12 | DVHPN2 ---
Reviewed: Care Plan, H&P, Labs, Medications, Previous Orders Changes from previous H/P or p: No Changes General: Per HPI Objective Vitals Vital Signs Date Time Temp Pulse Resp B/P (MAP) Pulse Ox O2 Delivery O2 Flow Rate FiO2 04/30/25 12:33 98.5 83 16 130/88 (102) 96 98.5 04/30/25 08:00 Room Air* 0 21 Intake/Output Intake and Output 04/30/25 07:00 Intake Total 1150 ml Balance 1150 ml Intake Oral 100 ml IV Total 1050 ml Medications Current Medications Medications Dose Ordered Sig/Davin Route Start Time Stop Time Status Last Admin Dose Admin Ketorolac Tromethamine 15 mg Q6HPRN PRN IV 04/29/25 22:00 05/04/25 21:59 Ceftriaxone Sodium 50 ml @ 100 mls/hr Q24H IV 04/30/25 21:00 Acetaminophen/ Hydrocodone Bitart 1 tab Q4HP PRN PO 04/29/25 22:00 04/30/25 13:41 1 TAB Temazepam 15 mg QHSP PRN PO 04/29/25 22:00 Ondansetron HCl 4 mg Q4HP PRN IV 04/29/25 22:00 Acetaminophen 650 mg Q6HP PRN PO 04/29/25 22:00 Laboratory Results Laboratory Tests 04/29/25 19:17 04/30/25 05:47 Chemistry Test 04/29/25 19:17 04/30/25 05:47 Albumin 4.7 g/dL (3.2-4.8) Calcium Level 9.5 mg/dL (8.7-10.4) 9.3 mg/dL (8.7-10.4) Total Protein 8.1 g/dL (5.7-8.2) LFT Test 04/29/25 19:17 Alanine Aminotransferase (ALT) 41 U/L (7-40) H Alkaline Phosphatase 104 U/L (46-116) Aspartate Amino Transferase (AST) 19 U/L (13-40) Total Bilirubin 0.7 mg/dL (0.2-1.0) Urinalysis Test 04/29/25 19:51 Urine Color Light-yellow (Yellow) Urine Clarity Clear (Clear) Urine pH 5.0 (5.0-9.0) Urine Specific [place] 1.020 (1.001-1.035) Urine Protein Negative (Negative) Urine Ketones 2+ (Negative) H Urine Blood Trace /uL (Negative) H Urine Nitrite Negative (Negative) Urine Bilirubin Negative (Negative) Urine Urobilinogen Normal mg/dL (Negative) Urine Leukocyte Esterase Negative /uL (Negative) Urine RBC 1 /hpf (0 - 3) Urine Microscopic WBC < 1 /HPF (0-3) Urine Squamous Epithelial Cells None seen /hpf (<5) Urine Bacteria None seen /hpf (None Seen) Urine Glucose Normal mg/dL (Normal) Assessment/Plan Assessment/Plan Ureterolithiasis Left hydronephrosis Left distal ureteral stone, 3 mm Plan Admit the patient to [facility] to the hospitalist Urology consultation Pain management Rocephin Continue treatment per orders. Plan discussed with: Patient My Orders Orders - ILIA CAMPOS DO Procedure Category Date Status Time NS [facility] 04/30/25 Transmitted 16:15 Date of Service: Apr 30, 2025 Billing Provider: ILIA CAMPOS DO Common Visit Codes: [id number] INP/OBS CARE(HIGH) ILIA CAMPOS DO Apr 30, 2025 16:11
[2025-04-30] MEDS: SODIUM CHLORIDE 0.9% 2,000 ML IV ONE (16:15)
[2025-05-01 01:00] VITALS: BP 131/87; PULSE 77; RESP 17; TEMP 97.5; O2SAT 95
[2025-05-01 05:00] VITALS: BP 127/87; PULSE 72; RESP 19; TEMP 97.8; O2SAT 96
[2025-05-01 08:43] VITALS: BP 137/87; PULSE 68; RESP 16; TEMP 98; O2SAT 97
[2025-05-01 12:34] VITALS: BP 128/83; PULSE 77; RESP 16; TEMP 98.1; O2SAT 96
[2025-05-01 16:37] VITALS: BP 132/84; PULSE 82; RESP 16; TEMP 98.7; O2SAT 96
[2025-05-01 21:00] VITALS: BP 121/79; PULSE 68; RESP 16; TEMP 98.1; O2SAT 97
[2025-05-02] VITALS (8 sets, daily range): BP systolic 123–141; BP diastolic 74–93; PULSE 62–88; RESP 14–16; TEMP 97.8–99.2; O2SAT 94–99
[2025-05-03] VITALS (7 sets, daily range): BP systolic 127–156; BP diastolic 88–97; PULSE 64–74; RESP 14–17; TEMP 97.9–98.2; O2SAT 94–98
--- NOTE | 2025-05-03 09:19 | MEDREC ---
[facility] ASP Intervention Section I [facility] ASP Intervention: Review courses of therapy (URINE ANALYSIS NEGATIVE - NO URINE CULTURE ORDERED - PLEASE CONSIDER DISCONTINUATION OF ANTIBIOTIC IN ABSENCE OF BACTERIAL INFECTION ) VIOLET SAMAYOA PHARMACIST May 03, 2025 09:19
[2025-05-03] MEDS ORDERED: MELO7.5T7 PO (15:43)
--- NOTE | 2025-05-03 15:44 | DVHDS2 ---
Discharge Summary Date of Admission Apr 29, 2025 at 21:49 Date of Discharge: May 03, 2025 Labs/Diagnostic Data: Laboratory Results Test 04/30/25 05:47 04/29/25 19:51 04/29/25 19:17 Sodium Level 138 mmol/L (136-145) Potassium Level 4.2 mmol/L (3.5-5.1) Chloride Level 102 mmol/L (98-107) Carbon Dioxide Level 26 mmol/L (20-31) Anion Gap 10 (5-15) Blood Urea Nitrogen 14 mg/dL (9-23) Creatinine 1.31 mg/dL (0.700-1.30) Glomerular Filtration Rate Calc 65 mL/min (>90) BUN/Creatinine Ratio 10.7 (10.0-20.0) Serum Glucose 93 mg/dL (74-106) Calcium Level 9.3 mg/dL (8.7-10.4) Urine Color Light-yellow (Yellow) Urine Clarity Clear (Clear) Urine pH 5.0 (5.0-9.0) Urine Specific [place] 1.020 (1.001-1.035) Urine Protein Negative (Negative) Urine Ketones 2+ (Negative) Urine Blood Trace /uL (Negative) Urine Nitrite Negative (Negative) Urine Bilirubin Negative (Negative) Urine Urobilinogen Normal mg/dL (Negative) Urine Leukocyte Esterase Negative /uL (Negative) Urine RBC 1 /hpf (0 - 3) Urine Microscopic WBC < 1 /HPF (0-3) Urine Squamous Epithelial Cells None seen /hpf (<5) Urine Bacteria None seen /hpf (None Seen) Urine Glucose Normal mg/dL (Normal) White Blood Count 11.0 10^3/uL (4.4-10.8) Red Blood Count 4.92 10^6/uL (4.5-5.90) Hemoglobin 15.2 g/dL (13.5-17.5) Hematocrit 43.7 % (41.0-53.0) Mean Corpuscular Volume 88.8 fL (80.0-100.0) Mean Corpuscular Hemoglobin 31.0 pg (28.0-32.0) Mean Corpuscular Hemoglobin Concent 34.9 g/dL (32.0-36.0) Red Cell Distribution Width 12.4 % (11.8-14.3) Platelet Count 290 10^3/uL (140-450) Mean Platelet Volume 7.5 fL (6.9-10.8) Neutrophils (%) (Auto) 76.3 % (37.0-80.0) Lymphocytes (%) (Auto) 13.6 % (10.0-50.0) Monocytes (%) (Auto) 9.7 % (0.0-12.0) Eosinophils (%) (Auto) 0.1 % (0.0-7.0) Basophils (%) (Auto) 0.3 % (0.0-2.0) Neutrophils # (Auto) 8.4 10 ^3/uL (1.6-8.6) Lymphocytes # (Auto) 1.5 10 ^3/uL (0.4-5.4) Monocytes # (Auto) 1.1 10 ^3/uL (0-1.3) Eosinophils # (Auto) 0 10 ^3/uL (0-0.8) Basophils # (Auto) 0 10 ^3/uL (0-0.2) Nucleated Red Blood Cells 0.0 % Total Bilirubin 0.7 mg/dL (0.2-1.0) Aspartate Amino Transferase (AST) 19 U/L (13-40) Alanine Aminotransferase (ALT) 41 U/L (7-40) Alkaline Phosphatase 104 U/L (46-116) Total Protein 8.1 g/dL (5.7-8.2) Albumin 4.7 g/dL (3.2-4.8) Other Laboratory Tests 04/30/25 05:47 04/29/25 19:17 Brief Hx & Hospital Course: ureterolithiasis Left hydronephrosis Left distal ureteral stone, 3 mm Plan Admit the patient to [facility] to the hospitalist Urology consultation Pain management Rocephin Continue treatment per orders. Condition at Discharge: Fair Final Diagnosis/Problems List see above Discharge Disposition: Home Discharge Instruct/Medications Diet: Cardiac 2g Na,low cholest Activity: No Restrictions, As Tolerated Scheduled Meloxicam (Meloxicam), 1 TAB PO DAILY Tamsulosin Hcl (Flomax), 1 CAP PO DAILY Scheduled PRN Tramadol HCl (Tramadol HCl), 50 MG PO QID PRN Discharge Statement: "Patient was advised to return to the ER or call 911 if any headaches, dizziness, shortness of breath, chest pain, abdominal pain, bleeding, fevers, or worsening of medical condition. Patient was counseled about treatment plan, medications, possible side effects, patientverbalized understanding. All questions were answered to the best of my ability. This discharge took greater then 30 minutes in planning, reviewing documentation, counseling the patient, and discussing with other team members." ASSESSMENT ASSESSMENT Assessment Date of Service: May 03, 2025 Billing Provider: ILIA CAMPOS DO Common Visit Codes: [id number] DISCH DAY >30min ILIA CAMPOS DO May 03, 2025 15:44
--- NOTE | 2025-05-03 15:44 | DVHPN2 ---
Reviewed: Care Plan, H&P, Labs Changes from previous H/P or p: No Changes General: Per HPI Objective Vitals Vital Signs Date Time Temp Pulse Resp B/P (MAP) Pulse Ox O2 Delivery O2 Flow Rate FiO2 05/03/25 12:49 98.1 74 16 134/88 (103) 97 98.1 05/03/25 08:00 Room Air* 0 21 Intake/Output Intake and Output 05/03/25 07:00 Intake Total 3095 ml Output Total 1500 ml Balance 1595 ml Intake Oral 3045 ml IV Total 50 ml Output Urine Total 1500 ml # Bowel Movements 1 Medications Current Medications Medications Dose Ordered Sig/Davin Route Start Time Stop Time Status Last Admin Dose Admin Ketorolac Tromethamine 15 mg Q6HPRN PRN IV 04/29/25 22:00 05/04/25 21:59 Ceftriaxone Sodium 50 ml @ 100 mls/hr Q24H IV 04/30/25 21:00 05/02/25 21:41 100 MLS/HR Acetaminophen/ Hydrocodone Bitart 1 tab Q4HP PRN PO 04/29/25 22:00 04/30/25 13:41 1 TAB Temazepam 15 mg QHSP PRN PO 04/29/25 22:00 Ondansetron HCl 4 mg Q4HP PRN IV 04/29/25 22:00 Acetaminophen 650 mg Q6HP PRN PO 04/29/25 22:00 Laboratory Results Laboratory Tests 04/29/25 19:17 04/30/25 05:47 Urinalysis Test 04/29/25 19:51 Urine Color Light-yellow (Yellow) Urine Clarity Clear (Clear) Urine pH 5.0 (5.0-9.0) Urine Specific [place] 1.020 (1.001-1.035) Urine Protein Negative (Negative) Urine Ketones 2+ (Negative) H Urine Blood Trace /uL (Negative) H Urine Nitrite Negative (Negative) Urine Bilirubin Negative (Negative) Urine Urobilinogen Normal mg/dL (Negative) Urine Leukocyte Esterase Negative /uL (Negative) Urine RBC 1 /hpf (0 - 3) Urine Microscopic WBC < 1 /HPF (0-3) Urine Squamous Epithelial Cells None seen /hpf (<5) Urine Bacteria None seen /hpf (None Seen) Urine Glucose Normal mg/dL (Normal) Assessment/Plan Assessment/Plan ureterolithiasis Left hydronephrosis Left distal ureteral stone, 3 mm Plan Admit the patient to [facility] to the hospitalist Urology consultation Pain management Rocephin Continue treatment per orders. Plan discussed with: Patient My Orders Orders - ILIA CAMPOS DO Procedure Category Date Status Time Discharge DISCHARGE 05/03/25 Transmitted 15:42 Date of Service: May 01, 2025 Billing Provider: ILIA CAMPOS DO Common Visit Codes: [id number] INP/OBS CARE(HIGH) ILIA CAMPOS DO May 03, 2025 15:44
--- NOTE | 2025-05-03 15:44 | DVHPN2 ---
Reviewed: Care Plan, H&P, Labs, Medications, Previous Orders Changes from previous H/P or p: No Changes General: Per HPI Objective Vitals Vital Signs Date Time Temp Pulse Resp B/P (MAP) Pulse Ox O2 Delivery O2 Flow Rate FiO2 05/03/25 12:49 98.1 74 16 134/88 (103) 97 98.1 05/03/25 08:00 Room Air* 0 21 Intake/Output Intake and Output 05/03/25 07:00 Intake Total 3095 ml Output Total 1500 ml Balance 1595 ml Intake Oral 3045 ml IV Total 50 ml Output Urine Total 1500 ml # Bowel Movements 1 Medications Current Medications Medications Dose Ordered Sig/Davin Route Start Time Stop Time Status Last Admin Dose Admin Ketorolac Tromethamine 15 mg Q6HPRN PRN IV 04/29/25 22:00 05/04/25 21:59 Ceftriaxone Sodium 50 ml @ 100 mls/hr Q24H IV 04/30/25 21:00 05/02/25 21:41 100 MLS/HR Acetaminophen/ Hydrocodone Bitart 1 tab Q4HP PRN PO 04/29/25 22:00 04/30/25 13:41 1 TAB Temazepam 15 mg QHSP PRN PO 04/29/25 22:00 Ondansetron HCl 4 mg Q4HP PRN IV 04/29/25 22:00 Acetaminophen 650 mg Q6HP PRN PO 04/29/25 22:00 Laboratory Results Laboratory Tests 04/29/25 19:17 04/30/25 05:47 Urinalysis Test 04/29/25 19:51 Urine Color Light-yellow (Yellow) Urine Clarity Clear (Clear) Urine pH 5.0 (5.0-9.0) Urine Specific [place] 1.020 (1.001-1.035) Urine Protein Negative (Negative) Urine Ketones 2+ (Negative) H Urine Blood Trace /uL (Negative) H Urine Nitrite Negative (Negative) Urine Bilirubin Negative (Negative) Urine Urobilinogen Normal mg/dL (Negative) Urine Leukocyte Esterase Negative /uL (Negative) Urine RBC 1 /hpf (0 - 3) Urine Microscopic WBC < 1 /HPF (0-3) Urine Squamous Epithelial Cells None seen /hpf (<5) Urine Bacteria None seen /hpf (None Seen) Urine Glucose Normal mg/dL (Normal) Assessment/Plan Assessment/Plan ureterolithiasis Left hydronephrosis Left distal ureteral stone, 3 mm Plan Admit the patient to [facility] to the hospitalist Urology consultation Pain management Rocephin Continue treatment per orders. Plan discussed with: Patient My Orders Orders - ILIA CAMPOS DO Procedure Category Date Status Time Discharge DISCHARGE 05/03/25 Transmitted 15:42 Date of Service: May 02, 2025 Billing Provider: ILIA CAMPOS DO Common Visit Codes: [id number] INP/OBS CARE(HIGH) ILIA CAMPOS DO May 03, 2025 15:44
== END 2025-05-03 17:10 | disposition home or self-care (01) | DRG 465 ==
LOC: ER 17:53 → OVERFLOW 21:49 → WEST WING 21:54
PROVIDERS: ADMIT Internal Medicine; ATTEND Internal Medicine
DX: N13.2 Hydronephrosis with renal and ureteral calculous obstruction (principal); Z87.442 Personal history of urinary calculi
CPT/HCPCS: 36415; 74176; 76857; 80048; 80053; 81001; 85025; 96361; 96365; 96375; G0378; J1885